=== PATIENT | male | born 1960 | race Caucasian/White ===

== ENCOUNTER 2021-12-13 11:00 | Outpatient (RCR) | payer BC, SELFPAY | END 2022-01-16 08:04 | disposition home or self-care (01) | LOC: PT.CARL 11:00 | PROVIDERS: Visit Provider Physician Assistant | DX: M25.512 Pain in left shoulder (principal) | CPT/HCPCS: 20560; 97010; 97014; 97033; 97035; 97110; 97163; G0283 ==

== ENCOUNTER 2023-01-07 19:35 | Emergency (ER) | payer BC, SELFPAY ==
[2023-01-07] VITALS (7 sets, daily range): BP systolic 176–213; BP diastolic 103–114; PULSE 61–69; RESP 16–18; TEMP 36.5–36.9; O2SAT 96–100; BMI 26.1; BMI 25.8
--- NOTE | 2023-01-07 20:03 | EXP.UTC ---
Discharge Plan Referrals Follow up/Referrals: Tomeka Melvin [Primary Care Provider] - See instructions Discharge ED Provider: Tone Galindo [facility] [place] General Stated complaint: dizzy, vomiting Mode of Arrival: Ambulatory Source of Information: Patient Limitations: No Limitations Time Seen by Provider: 01/07/23 20:03 Description of Symptoms (Recalled from Triage Doc. by RN): Patient complaint of dizziness, vomiting and blurred vision that started last night. HEENT Symptoms (Recalled from RN notes): No Resp Symptoms (Recalled from RN notes): No Skin Symptoms (Recalled from RN notes): No MS Symptoms (Recalled from RN notes): Yes Functional Status (Recalled from RN notes): wnl History of Present Illness Provider Complaint: Patient state that he was driving earlier and looked to the right and when he looked back he couldnt get his eyes to focus States that he had to nail puller and his had to take over driving State that his vision is blurry and feels like he is in another world State that he cannot focus and when he tries to look at something he gets sick He states that he has not had a headache, denies pain in ears and state that he has never felt like this before states that if he closes his eyes he feels a little better but when he opens them everything is blurry again Related Data Allergies Allergy/AdvReac Type Severity Reaction Status Date / Time No Known Allergies Allergy Verified 01/07/23 20:01 Worker's Comp Is this a Worker's Comp case?: No [facility] Disclaimer: The information contained in this section may have been updated after the patient was seen, as this information can be updated by other users. Social History Smoking Status: Unknown if ever smoked alcohol intake: never current occupational status: other Travel in the last 8 weeks: None ROS Obtained: Yes All systems reviewed & no additional complaints except as documented and Yes Systems reviewed as appropriate & no additional complaints except as documented Constitutional Constitutional: Reports system reviewed and no additional complaints, except as documented, Reports as per HPI and Denies headache(s) Eyes Eyes: Reports system reviewed and no additional complaints, except as documented, Reports as per HPI and Reports blurry vision ENT Ears, Nose, Mouth, and Throat: Reports system reviewed and no additional complaints, except as documented, Reports as per HPI, Reports dizziness, Denies otalgia, Denies headache(s), Denies nasal congestion, Denies nasal discharge, Denies sinus pain and Denies sinus pressure Cardiovascular Cardiovascular: Reports system reviewed and no additional complaints, except as documented and Reports as per HPI Respiratory Respiratory: Reports system reviewed and no additional complaints, except as documented and Reports as per HPI Gastrointestinal Gastrointestingal: Reports system reviewed and no additional complaints, except as documented, as per HPI, nausea and vomiting Neurologic Neurologic: Reports system reviewed and no additional complaints, except as documented, Reports as per HPI, Reports dizziness and Denies headache(s) Comments: Report feels dizzy, blurry vision when he tries to focus on something come on suddenly earlier Physical Exam General General appearance: alert and in no apparent distress Respiratory Respiratory exam: Present normal lung sounds bilaterally; Absent respiratory distress or wheezes Cardiovascular Cardiovascular exam: Present regular rate, normal rhythm and normal heart sounds Neurological Exam Neurological exam: Present alert and oriented X3 Medical Decision Making Tong Inquiry Pt receiving controlled substance: No Tong was queried for this patient: No Vital Signs: 01/07/23 19:36 Temperature 97.7 F Temperature Source Oral Pulse Rate [Radial] 61 Respiratory Rate 18 Blood Pressure [Right Arm] 213/103 H Blood Pressure Mean [Right Arm] 139 Blood Pressure Source [Right Arm] Automati
[2023-01-07 20:30] LABS: Coronavirus 19, PCR Not Detected (NotDetected); Influenza A, PCR Not Detected (NotDetected); Influenza B, PCR Not Detected (NotDetected)
--- NOTE | 2023-01-07 21:55 | CT_ITS ---
PROCEDURE INFORMATION: Exam: CTA Neck With Contrast Exam date and time: 01/07/2023 11:00 PM Age: 62 years old Clinical indication: Pain; Visual disturbance; Headache; Additional info: CASAREZ, HTN, blurry vision TECHNIQUE: Imaging protocol: Computed tomographic angiography of the neck with contrast. 3D rendering (Not supervised by radiologist): MIP and/or 3D reconstructed images were created by the technologist. Radiation optimization: All CT scans at this facility use at least one of these dose optimization techniques: automated exposure control; mA and/or kV adjustment per patient size (includes targeted exams where dose is matched to clinical indication); or iterative reconstruction. Contrast material: ISOVUE; Contrast volume: 100 ml; Contrast route: INTRAVENOUS (IV); REPORTING DATA: Count of CT and Cardiac NM exams in prior 12 months: This patient has received 0 known CTs and 0 known cardiac nuclear medicine studies in the 12 months prior to the current study. COMPARISON: CT HEAD/BRAIN WO CON 01/07/2023 10:58 PM FINDINGS: Right common carotid artery: No stenosis. No dissection or occlusion. Right internal carotid artery: No stenosis of the extracranial segment. No dissection or occlusion. Right external carotid artery: No occlusion or stenosis of the origin. Left common carotid artery: There is moderate soft plaque at the left carotid bulb and bifurcation. There is stenosis of the carotid bulb measuring less than 50%. Left internal carotid artery: No stenosis of the extracranial segment. No dissection or occlusion. Left external carotid artery: No occlusion or stenosis of the origin. Right vertebral artery: No stenosis. No dissection or occlusion. Left vertebral artery: No stenosis. No dissection or occlusion. Soft tissues: Normal. No significant soft tissue swelling. Bones/joints: No acute fracture. IMPRESSION: Moderate soft plaque at the left carotid bulb and bifurcation causing mild stenosis of the left carotid bulb. REFERENCES: NASCET CRITERIA. The degree of stenosis in the cervical segment of the internal carotid artery is based on NASCET criteria. Normal is no stenosis. Mild is less than 50% stenosis. Moderate is 50-69% stenosis. Severe is 70% to 99% stenosis. Total occlusion is no detectable patent lumen.
--- NOTE | 2023-01-07 21:55 | CT_ITS ---
PROCEDURE INFORMATION: Exam: CT Head Without Contrast Exam date and time: 01/07/2023 10:58 PM Age: 62 years old Clinical indication: Pain; Visual disturbance; Headache; Additional info: CASAREZ, HTN, blurry vision TECHNIQUE: Imaging protocol: Computed tomography of the head without contrast. Radiation optimization: All CT scans at this facility use at least one of these dose optimization techniques: automated exposure control; mA and/or kV adjustment per patient size (includes targeted exams where dose is matched to clinical indication); or iterative reconstruction. REPORTING DATA: Count of CT and Cardiac NM exams in prior 12 months: This patient has received 0 known CTs and 0 known cardiac nuclear medicine studies in the 12 months prior to the current study. COMPARISON: No relevant prior studies available. FINDINGS: Brain: There is mild to moderate small vessel disease. Chronic lacunar infarcts are seen in both frontal lobes and in the right basal ganglia. There is no evidence of acute parenchymal hemorrhage, extra-axial collection, or acute infarction. There is no mass effect, midline shift, or downward herniation. Cerebral ventricles: No ventriculomegaly. Paranasal sinuses: Visualized sinuses are unremarkable. No fluid levels. Mastoid air cells: Visualized mastoid air cells are well aerated. Bones/joints: Unremarkable. No acute fracture. Soft tissues: Unremarkable. IMPRESSION: 1. No evidence of acute intracranial process. 2. Mild to moderate small vessel disease. Multiple chronic lacunar infarcts.
--- NOTE | 2023-01-07 21:55 | CT_ITS ---
PROCEDURE INFORMATION: Exam: CTA Head With Contrast, Arteriography Exam date and time: 01/07/2023 11:00 PM Age: 62 years old Clinical indication: Pain; Visual disturbance; Headache; Additional info: CASAREZ, HTN, blurry vision TECHNIQUE: Imaging protocol: Computed tomographic angiography of the head with contrast. Exam focused on the arteries. 3D rendering (Not supervised by radiologist): MIP and/or 3D reconstructed images were created by the technologist. Radiation optimization: All CT scans at this facility use at least one of these dose optimization techniques: automated exposure control; mA and/or kV adjustment per patient size (includes targeted exams where dose is matched to clinical indication); or iterative reconstruction. Contrast material: ISOVUE; Contrast volume: 100 ml; Contrast route: INTRAVENOUS (IV); REPORTING DATA: Count of CT and Cardiac NM exams in prior 12 months: This patient has received 0 known CTs and 0 known cardiac nuclear medicine studies in the 12 months prior to the current study. COMPARISON: CT HEAD/BRAIN WO CON 01/07/2023 10:58 PM FINDINGS: ANTERIOR CIRCULATION: Right internal carotid artery: Intracranial segment is patent with no significant stenosis. No aneurysm. Right middle cerebral artery: No occlusion or significant stenosis. No aneurysm. Right anterior cerebral artery: No occlusion or significant stenosis. No aneurysm. Left internal carotid artery: Intracranial segment is patent with no significant stenosis. No aneurysm. Left middle cerebral artery: No occlusion or significant stenosis. No aneurysm. Left anterior cerebral artery: No occlusion or significant stenosis. No aneurysm. POSTERIOR CIRCULATION: Right vertebral artery: No occlusion or significant stenosis. No aneurysm. Left vertebral artery: No occlusion or significant stenosis. No aneurysm. Basilar artery: No occlusion or significant stenosis. No aneurysm. Right posterior cerebral artery: No occlusion or significant stenosis. No aneurysm. Left posterior cerebral artery: No occlusion or significant stenosis. No aneurysm. Brain: No definite mass, mass effect, or midline shift. Cerebral ventricles: No ventriculomegaly. Bones/joints: Unremarkable. No acute fracture. Soft tissues: Unremarkable. IMPRESSION: No large vessel stenosis or occlusion.
[2023-01-07 22:05] LABS: Basophils # 0.1 K/mm3 (0-0.2); Basophils % 0.4 % (0.1-2.0); Eosinophils # 0.1 K/mm3 (0.0-0.4); Eosinophils % 0.4 % (0.1-12.0); Hematocrit 46.1 % (42.0-52.0); Hemoglobin 15.2 g/dL (14.1-18.0); Lymphocytes # 1.2 K/mm3 (0.7-4.5); Lymphocytes % 7.3 % (10-50); Mean Corpuscular Hemoglobin 28.7 pg (27.0-31.2); Mean Corpuscular Volume 86.8 fl (80-94); Mean Platelet Volume 7.3 fl (7.4-10.4); Monocytes # 0.7 K/mm3 (0.1-1.0); Neutrophils # 14.5 K/mm3 (1.8-7.8); Neutrophils % 87.9 % (37.0-80.0); Platelet Count 299 K/mm3 (142-424); Red Blood Count 5.31 M/mm3 (4.60-6.20); Red Cell Distribution Width 13.1 % (11.5-17.5); White Blood Count 16.5 K/mm3 (4.8-10.8)
--- NOTE | 2023-01-07 22:09 | ECG_ITS ---
APPROVED REPORT Exam: Resting ECG HR:60 bpm ECG Measurements Heart Rate 60 AXES ND 150 P 24 QRSd 81 QRS 52 QT 424 T -33 QTc 424 Conclusion SINUS RHYTHM NONSPECIFIC ST & T-WAVE ABNORMALITY ABNORMAL ECG UNCONFIRMED REPORT Electronically signed by : Ty Vo MD 01/08/2023 18:33:03
[2023-01-07 22:12] LABS: MANUAL DIFFERENTIAL MANUAL DIFFERENTIAL (MANUAL DIFF)
[2023-01-07 22:27] LABS: Alanine Aminotransferase 22 U/L (12-78); Albumin Level 4.6 g/dl (3.5-5.0); Albumin/Globulin Ratio 1.2 (1.1-1.8); Alkaline Phosphatase 92 U/L (38-126); Anion Gap 5.7 mEq/L (5-15); Aspartate Amino Transferase 28 U/L (17-59); Bilirubin,Total 0.7 mg/dl (0.2-1.3); Blood Urea Nitrogen 11 mg/dl (9-20); Calcium 9.3 mg/dl (8.4-10.2); Carbon Dioxide 31 mmol/L (22.0-30.0); Chloride 97 mmol/L (98-107); Creatinine Clearance Estimated 90 mL/min (50-200); Estimated Glomerular Filt Rate 76 ml/min (>60); GFR (African American) 92 ML/MIN (>60); Globulin 3.7 g/dL (1.3-3.2); Glucose 226 mg/dl (74-100); Potassium 3.7 mmoL/L (3.5-5.1); Sodium 130 mmol/L (136-145); Total Protein,Serum 8.3 g/dl (6.3-8.2)
[2023-01-07 22:40] LABS: Troponin I < 0.01 ng/ml (0.00-0.034)
[2023-01-07 22:45] LABS: Free T4 (Free Thyroxine) 1.12 ng/dl (0.78-2.19)
[2023-01-07 22:58] LABS: Thyroid Stimulating Hormone 1.02 uIU/mL (0.465-4.68)
[2023-01-07 23:51] LABS: Lymphocytes % 7 % (10-50); Monocytes % 3 % (2-9); Neutrophils % 89 % (42-76); Total Cells Counted 100
[2023-01-07 23:52] LABS: Platelet Estimate Normal; RBC Morphology Normal
--- NOTE | 2023-01-07 23:55 | XR_ITS ---
PROCEDURE INFORMATION: Exam: XR Chest Exam date and time: 01/07/2023 11:57 PM Age: 62 years old Clinical indication: Shortness of breath; Additional info: KARENAlindsay TECHNIQUE: Imaging protocol: Radiologic exam of the chest. Views: 1 view. COMPARISON: CT ANGIO NECK 01/07/2023 11:00 PM FINDINGS: Lungs: Unremarkable. No consolidation. Pleural spaces: Unremarkable. No pleural effusion. No pneumothorax. Heart/Mediastinum: Unremarkable. No cardiomegaly. Bones/joints: Unremarkable. IMPRESSION: No acute findings.
[2023-01-08] VITALS: BP 174/104; PULSE 79; RESP 19; O2SAT 97
--- NOTE | 2023-01-08 00:11 | PC.NURSE ---
Pt up and ambulated to the bathroom. CR
[2023-01-08 01:00] VITALS: BP 188/107; PULSE 62; RESP 16; O2SAT 97
[2023-01-08 01:15] LABS: Troponin I < 0.01 ng/ml (0.00-0.034)
[2023-01-08 01:24] LABS: Microscopic, Urine URINE MICROSCOPIC (MICROSCOPIC)
[2023-01-08 01:30] VITALS: BP 179/106; PULSE 72; RESP 16; O2SAT 97
--- NOTE | 2023-01-08 01:35 | PC.NURSE ---
ED doctor on phone with hospitalist
[2023-01-08 01:36] LABS: Appearance,Urine Clear (Clear); Color,Urine Yellow (Yellow); PH,Urine 6.5 (5.0-8.5)
[2023-01-08 01:37] LABS: Bilirubin,Urine Negative (Negative); Blood, Urine Negative (Negative); Glucose,Urine (UA) 2+ (Negative); Ketones,Urine Negative (Negative); Nitrate,Urine Negative (Negative); Protein,Urine Negative (Negative)
[2023-01-08 01:38] LABS: Leukocyte Esterase,Urine Negative (Negative); Urobilinogen,Urine 0.2 EU/dl (0.2)
--- NOTE | 2023-01-08 01:42 | ECG_ITS ---
APPROVED REPORT Exam: Resting ECG HR:65 bpm ECG Measurements Heart Rate [address] 155 P 23 QRSd 81 QRS 32 QT 422 T -63 QTc [address] DEVIATION AND MODERATE T-WAVE ABNORMALITY, CONSIDER LATERAL ISCHEMIA [-0.1+ mV T-WAVE IN I/aVL/V5/V6] ABNORMAL ECG UNCONFIRMED REPORT Electronically signed by : Ty Vo MD 01/08/2023 18:32:50
[2023-01-08 01:43] LABS: Bacteria,Urine Trace /lpf; Squamous Epithelial Cell,Urine Occasional #/hpf (0-5)
--- NOTE | 2023-01-08 01:44 | HMH.EDGENADL ---
Discharge Plan Disposition Patient Disposition: Home, Self-Care Condition: Good Prescriptions Prescriptions: New lisinopril 10 mg tablet 10 mg PO DAILY Qty: 30 0RF meclizine 25 mg tablet 25 mg PO BID PRN (Reason: dizziness) Qty: 20 0RF Referrals Follow up/Referrals: Tomeka Melvin [Primary Care Provider] - See instructions Activity Restrictions/Add. Instructions Additional Instructions/Restrictions: You were evaluated in the emergency department today. At this time, your work-up was reassuring. You do have high blood pressure, so I recommend taking your blood pressure at least once a day and keeping a log of your blood pressures at home. Please follow-up with your primary care provider and provide them with this. We are sending in a prescription for meclizine for you to take as needed for vertigo. I am also sending in a prescription for lisinopril which is a blood pressure medication for you to take daily. Return to the emergency department for any new or worsening symptoms or any recurrence of severe dizziness. Please be seen by her primary care provider over the next 3 days. Clinical Impressions Clinical Impression: Hypertension, Vertigo Instructions Patient Instructions: DI for High Blood Pressure, DI for Vertigo Discharge ED Provider: Taylor Vega General Adult HPI <Taylor Vega DO - Last Filed: 01/08/23 02:03> General Chief complaint: Dizziness Stated complaint: dizzy, vomiting Time Seen by Provider: 01/07/23 20:03 Mode of Arrival: Wheelchair Source of Information: Patient and Spouse Limitations: No Limitations Description of Symptoms (Recalled from ER Triage Doc. by RN): pt reports he was driving around 5:30 today looked right and got dizzy and had to caul fat puller and threw up. the pt states that the last time he had something like this happen was when he had covid the 1st time Related Data Previous Rx's Medication Instructions Recorded lisinopril 10 mg tablet 10 mg PO DAILY #30 tabs 01/08/23 meclizine 25 mg tablet 25 mg PO BID PRN dizziness #20 tabs 01/08/23 Allergies Allergy/AdvReac Type Severity Reaction Status Date / Time No Known Allergies Allergy Verified 01/07/23 20:01 <Tone Galindo MD - Last Filed: 01/08/23 01:57> History of Present Illness HPI narrative: Patient presents for evaluation of acute onset vertigo, which occurred at approximately 5:00 PM today, symptoms have subsequently largely resolved, patient described the room is spinning. Patient first noticed symptoms while driving in the car, witnessed by at bedside. Of note patient does not routinely see a doctor so is unsure of any chronic medical issues. Was in his normal state of health prior to onset of events. As only remotely had similar symptoms of the past associated with prior diagnosis of coven. No chest pain or palpitations or motor weakness no precinct piercing to be. No diplopia or other focal neurologic complaints. [facility] <Taylor Vega DO - Last Filed: 01/08/23 02:03> [facility] Disclaimer: The information contained in this section may have been updated after the patient was seen, as this information can be updated by other users. Social History (Updated 01/07/23 @ 20:14 by Suzette Medrano APRN) Smoking Status: Never smoker alcohol intake: never current occupational status: other Travel in the last 8 weeks: None <Tone Galindo MD - Last Filed: 01/08/23 01:57> ROS Obtained: Yes All systems reviewed & no additional complaints except as documented Physical Exam <Taylor Vega DO - Last Filed: 01/08/23 02:03> General General appearance: alert and in no apparent distress <Tone Galindo MD - Last Filed: 01/08/23 01:57> Head Head exam: atraumatic and normocephalic Eye Eye exam: Present normal appearance, PERRL and EOMI ENT ENT exam: Present normal oropharynx Neck Neck exam: Present full ROM Respiratory Respiratory exam: Present normal lung sounds bilaterally; Absent respiratory dist
[2023-01-08 01:51] VITALS: BP 165/100; PULSE 68; RESP 18; TEMP 36.5
== END 2023-01-08 01:59 | disposition home or self-care (01) ==
LOC: UTC 19:37 → ER 20:11
PROVIDERS: Emergency Medicine; Emergency Provider Emergency Medicine; PCP Nurse Practitioner Family
DX: R42 Dizziness and giddiness (principal); R11.10 Vomiting, unspecified; I10 Essential (primary) hypertension
CPT/HCPCS: 36415; 70450; 70496; 70498; 71045; 80053; 81001; 84439; 84443; 84484; 85007; 85025; 87636; 93005; 96374; 99285; Q9967

== ENCOUNTER 2023-07-21 09:45 | Observation (INO) | payer BC, SELFPAY ==
[2023-07-21] VITALS (8 sets, daily range): BP systolic 107–151; BP diastolic 77–88; PULSE 62–78; RESP 14–18; TEMP 36.6–36.7; O2SAT 94–99; BMI 28.3; BMI 26.0
--- NOTE | 2023-07-21 09:53 | ECG_ITS ---
APPROVED REPORT Exam: Resting ECG HR:79 bpm ECG Measurements Heart Rate 79 AXES MO 149 P 30 QRSd 76 QRS 48 QT 349 T -10 QTc 383 Conclusion SINUS RHYTHM NONSPECIFIC T-WAVE ABNORMALITY Electronically signed by : HELENE DURANT, 07/22/2023 06:38:26
--- NOTE | 2023-07-21 09:58 | XR_ITS ---
FINAL REPORT CLINICAL HISTORY: slurred speech COMPARISON: 01/07/2023 FINDINGS: SINGLE-VIEW CHEST The heart size is normal. The mediastinum is normal. The lungs are clear. There is no pneumothorax. IMPRESSION: No acute cardiopulmonary process. Reviewed, Interpreted and Dictated by Michael Bliss III, MD Transcribed by Erna Torres Authenticated and [facility]
--- NOTE | 2023-07-21 09:59 | CT_ITS ---
FINAL REPORT TECHNIQUE: Thin section axial CT with IV contrast supplemented with multiplanar reconstruction under CT angiogram protocol. 3-D reconstructions were performed. This study was performed with techniques to keep radiation doses as low as reasonably achievable (ALARA). Individualized dose reduction techniques using automated exposure control or adjustment of mA and/or kV according to the patient''s size were employed. CLINICAL HISTORY: stroke symptoms, 1wk old, slurred speech COMPARISON: 01/07/2023 FINDINGS: No aneurysm is seen. Major intracranial vessels are patent without significant stenosis. Reviewed, Interpreted and Dictated by Michael Bliss III, MD Transcribed by Ruth Erazo Authenticated and [facility]
--- NOTE | 2023-07-21 09:59 | CT_ITS ---
FINAL REPORT TECHNIQUE: Thin section axial CT with IV contrast supplemented with multiplanar reconstruction under CT angiogram protocol. This study was performed with techniques to keep radiation doses as low as reasonably achievable (ALARA). Individualized dose reduction techniques using automated exposure control or adjustment of mA and/or kV according to the patient''s size were employed. NASCET criteria was utilized during interpretation. CLINICAL HISTORY: stroke symptoms, 1wk old, slurred speech COMPARISON: 01/07/2023 FINDINGS: Aortic arch: Arch shows no significant narrowing. Great vessel origins are widely patent. Right carotid: No significant stenosis is seen of the cervical common or internal carotid artery. Left carotid: No significant stenosis is seen of the cervical common or internal carotid artery. Vertebral: Left vertebral artery is dominant. No significant stenosis is present. IMPRESSION: No evidence of occlusion or significant stenosis. Reviewed, Interpreted and Dictated by Michael Bliss III, MD Transcribed by Ruth Erazo Authenticated and [facility]
--- NOTE | 2023-07-21 09:59 | CT_ITS ---
FINAL REPORT CLINICAL HISTORY: stroke symptoms, 1wk old, slurred speech COMPARISON: 01/07/2023 FINDINGS: Axial images of the head were obtained without contrast. Coronal reformatted images were also obtained. This study was performed with techniques to keep radiation doses as low as reasonably achievable (ALARA). Individualized dose reduction techniques using automated exposure control or adjustment of mA and/or kV according to the patient's size were employed. There is generalized age-appropriate atrophy. Periventricular low-attenuation areas are seen consistent with moderate chronic ischemic changes. There is no evidence of intracranial hemorrhage or mass. There are multiple chronic lacunar infarcts bilaterally which are stable. There is no evidence of acute infarct. There is no evidence of shift of the midline structures. No skull abnormality is seen on the bone window images. IMPRESSION: Atrophy and moderate periventricular chronic ischemic changes. No acute intracranial abnormality identified. Reviewed, Interpreted and Dictated by Michael Bliss III, MD Transcribed by Ruth Erazo Authenticated and . [facility]
[2023-07-21 10:10] LABS: Basophils # 0.2 K/mm3 (0-0.2); Basophils % 1.3 % (0.1-2.0); Eosinophils # 0.4 K/mm3 (0.0-0.4); Eosinophils % 3.3 % (0.1-12.0); Hematocrit 46.7 % (42.0-52.0); Hemoglobin 15.4 g/dL (14.1-18.0); Lymphocytes # 3.2 K/mm3 (0.7-4.5); Lymphocytes % 28.2 % (10-50); Mean Corpuscular Hemoglobin 30.9 pg (27.0-31.2); Mean Corpuscular Volume 93.7 fl (80-94); Mean Platelet Volume 7.3 fl (7.4-10.4); Monocytes # 0.8 K/mm3 (0.1-1.0); Monocytes % 7.3 % (1.7-9.3); Neutrophils # 6.8 K/mm3 (1.8-7.8); Neutrophils % 59.9 % (37.0-80.0); Platelet Count 324 K/mm3 (142-424); Red Blood Count 4.99 M/mm3 (4.60-6.20); Red Cell Distribution Width 13.3 % (11.5-17.5); White Blood Count 11.4 K/mm3 (4.8-10.8)
[2023-07-21 10:16] LABS: Alanine Aminotransferase 34 U/L (12-78); Albumin Level 4.3 g/dl (3.5-5.0); Albumin/Globulin Ratio 1.3 (1.1-1.8); Alkaline Phosphatase 86 U/L (38-126); Aspartate Amino Transferase 29 U/L (17-59); Bilirubin,Total 0.7 mg/dl (0.2-1.3); Blood Urea Nitrogen 16 mg/dl (9-20); Calcium 9.4 mg/dl (8.4-10.2); Carbon Dioxide 27 mmol/L (22.0-30.0); Chloride 101 mmol/L (98-107); Chol/HDL Ratio 6.5 (1-3.5); Cholesterol 246 mg/dl (140-200); Estimated Glomerular Filt Rate 68 ml/min (>60); GFR (African American) 82 ML/MIN (>60); Globulin 3.2 g/dL (1.3-3.2); Glucose 346 mg/dl (74-100); HDL Cholesterol 38 mg/dl (40-60); Sodium 138 mmol/L (136-145); Total Protein,Serum 7.5 g/dl (6.3-8.2); Triglycerides 293 mg/dl (30-150); VLDL Cholesterol 59 mg/dL (0-40)
--- NOTE | 2023-07-21 10:24 | ED_ITS ---
Discharge Plan Disposition Patient Disposition: Admitted Chief Complaint: Neuro Symptoms/Deficit Prescriptions Prescriptions: No Action lisinopril 10 mg tablet 10 mg PO DAILY Qty: 30 0RF meclizine 25 mg tablet 25 mg PO BID PRN (Reason: dizziness) Qty: 20 0RF Referrals Follow up/Referrals: Jose Morales APRN [Primary Care Provider] - See instructions Clinical Impressions Clinical Impression: Stroke syndrome, Right-sided sensory deficit present, Diabetes mellitus, Hyperlipidemia Discharge ED Provider: Corbin Medel General Adult HPI General Chief complaint: Neuro Symptoms/Deficit Stated complaint: slurred speech, dizziness Time Seen by Provider: 07/21/23 09:57 History of Present Illness HPI narrative: This is a 62-year-old male with history of hypertension on lisinopril with neurodeficits. Patient states that about 8 days prior to this visit, he woke up in the morning with these deficits. States that he has had slurred speech, difficulty with food falling out of the right side of his mouth, biting the right side of his tongue and cheek, weakness on his right side, falling toward his right side. Sustained no trauma. Has not had full fall, is not complaining of any pain. He states that the symptoms have not gotten any better or worse and his was able to convince him to come to the emergency department for further evaluation. Has been taking his medications as prescribed. Denies vision deficits, chest pain, shortness of breath, fevers or chills, or any other concerns Related Data Previous Rx's Medication Instructions Recorded lisinopril 10 mg tablet 10 mg PO DAILY #30 tabs 01/08/23 meclizine 25 mg tablet 25 mg PO BID PRN dizziness #20 tabs 01/08/23 Allergies Allergy/AdvReac Type Severity Reaction Status Date / Time No Known Allergies Allergy Verified 07/21/23 10:52 [facility] Disclaimer: The information contained in this section may have been updated after the patient was seen, as this information can be updated by other users. Social History (Updated 01/07/23 @ 20:14 by Suzette Medrano APRN) Smoking Status: Never smoker alcohol intake: never current occupational status: other Travel in the last 8 weeks: None ROS Obtained: Yes All systems reviewed & no additional complaints except as documented Physical Exam General General appearance: alert and in no apparent distress Head Head exam: atraumatic and normocephalic Eye Eye exam: Present normal appearance, PERRL and EOMI ENT ENT exam: Present mucous membranes moist Neck Neck exam: Present normal inspection, full ROM and trachea midline Respiratory Respiratory exam: Present normal lung sounds bilaterally; Absent respiratory distress, wheezes, stridor, accessory muscle use or prolonged expiratory phase Cardiovascular Cardiovascular exam: Present regular rate and normal rhythm Abdominal Exam Abdominal exam: Present soft; Absent distention, tenderness, guarding, rebound or rigidity Extremities Exam Extremities exam: Absent edema Neurological Exam Neurological exam: Present alert, oriented X3, normal gait, motor sensory deficit and other (NIH 8. Patient has 1 point for lateral gaze palsy, right- sided lower face paralysis, right upper extremity weakness without drift, right lower extremity weakness and drift, decreased sensation right upper extremity as compared to left, moderate dysarthria, and visual inattention.); Absent CN II- XII intact Skin Skin exam: Present warm and dry; Absent diaphoresis or erythema Medical Decision Making Medical Records Medical records reviewed: Yes I reviewed the patient's medical records. Tong Inquiry Pt receiving controlled substance: No Tong was queried for this patient: No Vital Signs: 07/21/23 10:02 07/21/23 10:11 07/21/23 10:45 Temperature Source Oral Pulse Rate 78 71 Pulse Rate [Left] 76 Respiratory Rate 14 15 Blood Pressure 144/88 H 127/82 Blood Pressure [Right Arm] 144/88 H Blood Pressure Mean 103 Blood Pressure Mean [Right Arm] 106 Blood Pressure Source [Right Arm] Automatic Cuff Blood Pressure Position [Right Arm] Sitting 02 Sat by Pulse Oximetry 98 98 97 Oxygen Delivery Method Room Air Lab Data Lab Results 07/21/23 09:57: WBC 11.4 H, RBC 4.99, Hgb 15.4, Hct 46.7, MCV 93.7, MCH 30.9, MCHC 33.0, RDW 13.3, Plt Count 324, MPV 7.3 L, Neut % (Auto) 59.9, Lymph % (Auto) 28.2, Kane % (Auto) 7.3, Eos % (Auto) 3.3, Baso % (Auto) 1.3, Neut # (Auto) 6.8, Lymph # (Auto) 3.2, Kane # (Auto) 0.8, Eos # (Auto) 0.4, Baso # (Auto) 0.2, Sodium 138, Potassium 4.0, Chloride 101, Carbon Dioxide 27, Anion Gap 14.0, BUN 16, Creatinine 1.10, Estimated GFR 68, Est GFR ( Amer) 82, Glucose 346 H, Hemoglobin A1c 9.8 H, Calcium 9.4, Total Bilirubin 0.7, AST 29, ALT 34, Alkaline Phosphatase 86, Troponin I < 0.01, Total Protein 7.5, Albumin 4.3, Globulin 3.2, Albumin/Globulin Ratio 1.3, Triglycerides 293 H, Cholesterol 246 H, LDL Cholesterol Direct 119.19, VLDL Cholesterol 59 H, HDL Cholesterol 38 L, Cholesterol/HDL Ratio 6.5 H 07/21/23 09:57 07/21/23 09:57 Orders (Tests/Meds): ED MEDICATIONS Discontinued Medications Generic Name Dose Route Start Last Admin Trade Name Freq PRN Reason Stop Dose Admin Aspirin 324 mg 07/21/23 10:31 07/21/23 11:10 Aspirin 81mg Chewable Tablet PO 07/21/23 10:32 324 mg ONCE ONE Administration Iopamidol 100 ml 07/21/23 10:43 07/21/23 10:43 Iopamidol-370 (76%);100ml Bottle IV 07/21/23 10:44 100 ml ONCE ONE Administration Sodium Chloride 10 ml 07/21/23 10:43 07/21/23 10:43 Sodium Chloride 0.9% 10ml Syr (Rad Only) IV 07/21/23 10:44 10 ml ONCE ONE Administration Sodium Chloride 50 ml 07/21/23 10:43 07/21/23 10:43 0.9 % Sodium Chloride 50 Ml Vial IV 07/21/23 10:44 50 ml ONCE ONE Administration ORDERS Category Date Time Status CT angio head Stat Cat Scan 07/21/23 09:[address] angio neck Stat Cat Scan 07/21/23 09:[address] head/brain wo con Stat Cat Scan 07/21/23 09:59 Completed CXR --portable [XR chest portable] Stat Exams 07/21/23 09:58 Taken Complete Blood Count Auto Diff Stat Lab 07/21/23 09:57 Completed Comprehensive Metabolic Panel Stat Lab 07/21/23 09:57 Completed Hemoglobin A1C Stat Lab 07/21/23 09:57 Completed Lipid Panel Stat Lab 07/21/23 09:57 Completed Troponin I Q3H Lab 07/21/23 13:00 Ordered Troponin I Q3H Lab 07/21/23 16:00 Ordered Troponin I Stat Lab 07/21/23 09:57 Completed Urinalysis and Microscopic Stat Lab 07/21/23 10:12 Received HEART Score History (anamnesis): Slightly suspicious ECG: Normal Age: 45-65 years Risk factors: 3 or more risk factors Troponin: </= normal limit HEART Score: 3 Medical Decision Narrative: This is a 62-year-old male with history of hypertension on lisinopril with neurodeficits. Patient states that about 8 days prior to this visit, he woke up in the morning with these deficits. States that he has had slurred speech, difficulty with food falling out of the right side of his mouth, biting the right side of his tongue and cheek, weakness on his right side, falling toward his right side. Sustained no trauma. Has not had full fall, is not complaining of any pain. He states that the symptoms have not gotten any better or worse and his was able to convince him to come to the emergency department for further evaluation. Has been taking his medications as prescribed. Denies vision deficits, chest pain, shortness of breath, fevers or chills, or any other concerns. History was obtained via conversation with patient and . On arrival, patient hemodynamically stable, alert, oriented x4, appropriate, GCS 15, moving all extremities spontaneously, pupils equal and reactive to light. Full physical exam performed and significant for NIH of 8 for right-sided deficits as described above. Cardiopulmonary exam within normal limits, pulses equal and symmetric, patient no acute distress. Differential includes embolic versus thrombotic stroke, intracranial hemorrhage, dissection, stroke mimic, metabolic abnormality, among others. Patient was given 324 mg aspirin for symptomatic management and correction of underlying abnormalities. Workup independently interpreted and significant for nonactionable CBC or chemistry. Patient's initial glucose 346, this correlates with an A1c of 9.8. Patient also has hyperlipidemia and hypercholesterolemia with triglycerides 293, cholesterol 246. Troponin negative. CT head without obvious acute infarct, CTA head and neck without large vessel occlusion or other obvious vascular abnormality. See radiology read for full review of final results. Independent interpretation of EKG shows sinus rhythm [address] or T wave changes concerning for acute ischemia. [place], QRS, QT intervals within normal limits. Elizabeth normal. Heart score 3. On reevaluation, patient resting at baseline in bed. Hospital medicine was contacted for admission for further workup, including MRI to rule out intracranial mass versus other ischemic insult. Case was discussed at length, admission warranted at this time. Given patient presentation, workup, history, this most likely represents subacute stroke syndrome versus intracranial mass. Because patient high risk for clinical decompensation, deemed appropriate for inpatient admission. Results were relayed to patient who voiced understanding and patient was agreeable to inpatient admission and management. Patient was admitted to the hospital for further definitive management. Critical Care Critical Care Time Critical Care Time: No
[2023-07-21 10:27] LABS: Direct LDL Cholesterol 119.19 mg/dL (100-129)
[2023-07-21 10:31] LABS: Troponin I < 0.01 ng/ml (0.00-0.034)
--- NOTE | 2023-07-21 10:35 | PC.NURSE ---
Patient to ct.
--- NOTE | 2023-07-21 10:40 | PC.NURSE ---
Patient returned from ct.
[2023-07-21] MEDS: SODIUM CHLORIDE 0.9% 10ML SYR (RAD ONLY) 10 ML IV (10:43)
[2023-07-21] MEDS: 0.9 % SODIUM CHLORIDE 50 ML VIAL IV (10:43)
[2023-07-21] MEDS: IOPAMIDOL-370 (76%);100ML BOTTLE 100 ML IV (10:43)
[2023-07-21 10:52] LABS: Microscopic, Urine URINE MICROSCOPIC (MICROSCOPIC)
[2023-07-21 10:54] LABS: Appearance,Urine CLEAR (Clear); Bilirubin,Urine Negative (Negative); Blood, Urine Negative (Negative); Color,Urine YELLOW (Yellow); Glucose,Urine (UA) 3+ (Negative); Ketones,Urine Negative (Negative); Leukocyte Esterase,Urine Negative (Negative); Nitrate,Urine Negative (Negative); PH,Urine 5.5 (5.0-8.5); Protein,Urine Negative (Negative); Urobilinogen,Urine 0.2 EU/dl (0.2)
[2023-07-21 10:55] LABS: Hemoglobin A1C 9.8 % (4.0-6.0)
[2023-07-21] MEDS: ASPIRIN 81MG CHEWABLE TABLET 324 MG PO (11:10)
--- NOTE | 2023-07-21 11:19 | PC.NURSE ---
rounded on pt no needs at this time, did close doors so pt could rest. at bs and call light in reach
--- NOTE | 2023-07-21 11:31 | PC.NURSE ---
house aware of admission
[2023-07-21 11:36] LABS: Bacteria,Urine Trace /lpf; Squamous Epithelial Cell,Urine Occasional #/hpf (0-5)
--- NOTE | 2023-07-21 11:38 | PC.NURSE ---
Admissions notified of admit to room 261 for Stoke symptoms to . Acute.
--- NOTE | 2023-07-21 11:55 | PC.NURSE ---
report called to Mónica Sutherland RN
--- NOTE | 2023-07-21 12:01 | PC.NURSE ---
Pt arrived to SCU room 262 at this time via WC
--- NOTE | 2023-07-21 12:43 | HMH.PHAINT1 ---
Pharmacy Intervention Comments: Verified home medications using external fill history and provider notes
[2023-07-21 13:44] LABS: Troponin I < 0.01 ng/ml (0.00-0.034)
--- NOTE | 2023-07-21 15:26 | MR_ITS ---
PROCEDURE INFORMATION: Exam: MR Head Without Contrast Exam date and time: 07/21/2023 3:35 PM Age: 62 years old Clinical indication: Stroke-like symptoms; Speech disturbance; Additional info: CVA TECHNIQUE: Imaging protocol: Magnetic resonance imaging of the head without contrast. COMPARISON: CT ANGIO HEAD 07/21/2023 10:34 AM FINDINGS: Brain: There are multiple T2/FLAIR subcortical and deep white matter hyperintense foci, which can be seen with reactive gliosis secondary to prior infectious, ischemic, or traumatic insults. Bilateral periventricular white-matter diffusion restriction having increased DWI signal with low ADC values measuring 9 mm on the right, and 11 mm on the left. Cerebral ventricles: Normal. No ventriculomegaly. Bones/joints: Unremarkable. Paranasal sinuses: Normal as visualized. No acute sinusitis. Mastoid air cells: Normal as visualized. No mastoid effusion. Orbital cavities: Unremarkable. Soft tissues: Unremarkable. IMPRESSION: Bilateral periventricular white matter ischemia as discussed above.
--- NOTE | 2023-07-21 16:13 | EXP.HP ---
History of Present Illness *Admission Date: 07/21/23 *Reason for visit:: Right-sided weakness, right facial droop *History of present illness: Patient is a 62-year-old male without significant past medical history who presents to the hospital due to right-sided facial droop, right-sided weakness. According the patient he has been having weakness for the past 1 week, it has not been improving. He decided to come to the hospital for evaluation. Patient also mentions he feels dizzy intermittently especially while standing up. Patient denied chest pain shortness of breath nausea vomiting diarrhea constipation dysuria fevers and chills. Patient denies difficulty swallowing difficulty walking. [facility] Disclaimer: The information contained in this section may have been updated after the patient was seen, as this information can be updated by other users. Social History (Updated 01/07/23 @ 20:14 by Suzette Medrano APRN) Smoking Status: Never smoker alcohol intake: never current occupational status: other Travel in the last 8 weeks: None Review of Systems Review of Systems Review of systems (narrative): as per [facility] Meds Home Medications and Allergies Home Medications Medication Instructions Recorded Confirmed Type lisinopril 10 mg tablet 10 mg PO DAILY #30 tabs 01/08/23 07/21/23 Rx meclizine 25 mg tablet 25 mg PO BID PRN dizziness #20 tabs 01/08/23 07/21/23 Rx New Prescriptions to Start Prescriptions: Allergies Allergy/AdvReac Type Severity Reaction Status Date / Time No Known Allergies Allergy Verified 07/21/23 12:23 Exam Data for Last 24 hours Vital signs and Labs for Last 24 Hours: Temp Pulse Resp BP Pulse Ox O2 Del Method 98.0 F 78 18 151/82 H 98 Room Air 07/21/23 15:21 07/21/23 15:21 07/21/23 15:21 07/21/23 15:21 07/21/23 15:21 07/21/23 15:21 Laboratory Results - last 24 hr 07/21/23 09:57: WBC 11.4 H, RBC 4.99, Hgb 15.4, Hct 46.7, MCV 93.7, MCH 30.9, MCHC 33.0, RDW 13.3, Plt Count 324, MPV 7.3 L, Neut % (Auto) 59.9, Lymph % (Auto) 28.2, Bryan % (Auto) 7.3, Eos % (Auto) 3.3, Baso % (Auto) 1.3, Neut # (Auto) 6.8, Lymph # (Auto) 3.2, Bryan # (Auto) 0.8, Eos # (Auto) 0.4, Baso # (Auto) 0.2, Sodium 138, Potassium 4.0, Chloride 101, Carbon Dioxide 27, Anion Gap 14.0, BUN 16, Creatinine 1.10, Estimated GFR 68, Est GFR ( Amer) 82, Glucose 346 H, Hemoglobin A1c 9.8 H, Calcium 9.4, Total Bilirubin 0.7, AST 29, ALT 34, Alkaline Phosphatase 86, Troponin I < 0.01, Total Protein 7.5, Albumin 4.3, Globulin 3.2, Albumin/Globulin Ratio 1.3, Triglycerides 293 H, Cholesterol 246 H, LDL Cholesterol Direct 119.19, VLDL Cholesterol 59 H, HDL Cholesterol 38 L, Cholesterol/HDL Ratio 6.5 H 07/21/23 10:12: Urine Color Yellow, Urine Appearance Clear, Urine pH 5.5, Ur Specific [place] 1.020, Urine Protein Negative, Urine Glucose (UA) 3+, Urine Ketones Negative, Urine Blood Negative, Urine Nitrate Negative, Urine Bilirubin Negative, Urine Urobilinogen 0.2, Ur Leukocyte Esterase Negative, Urine RBC None, Urine WBC None, Ur Squamous Epith Cells Occasional, Urine Bacteria Trace 07/21/23 13:10: Troponin I < 0.01 I & O for Last 24 hours: Intake & Output 07/18/23 07/19/23 07/20/23 07/21/23 22:59 23:59 23:59 23:59 Output Total 0 / 0 Balance 0 / 0 Weight 87.09 kg Constitutional Constitutional: no acute distress *Routine HEENT Exam Head: Present normocephalic Eye: Present EOMI and PERRL ENT: Present mucous membranes moist *Routine Neck Exam Neck: Present supple; Absent lymphadenopathy *Routine Respiratory Exam Respiratory: Present CTA bilaterally *Routine Cardiovascular Exam Cardiovascular: Present RRR *Routine Abdominal Exam Abdominal: Present soft and normoactive bowel sounds; Absent tenderness *Routine Rectal Exam Rectal:: deferred *Routine Genitalia Exam Genitalia:: deferred *Routine Extremities Exam Extremities: Absent cyanosis, clubbing or edema *Routine Skin Exam Skin: Present warm; Absent rash *Routine Neurological Exam Neurological: Present alert, oriented X3, moving all extremities and normal tone Assessment and Plan *Assessment and plan (1) Hyperlipidemia: Status: Acute Category: Medical Code(s): E78.5 - Hyperlipidemia, unspecified (2) Diabetes mellitus: Status: Acute Category: Medical Code(s): E11.9 - Type 2 diabetes mellitus without complications (3) Stroke syndrome: Status: Acute Category: Medical (4) Hypertension: Status: Acute Category: Medical Code(s): I10 - Essential (primary) hypertension Plan Patient is a 62-year-old male without significant past medical history who presents to the hospital due to right-sided facial droop, right-sided weakness. According the patient he has been having weakness for the past 1 week, it has not been improving. He decided to come to the hospital for evaluation. Patient also mentions he feels dizzy intermittently especially while standing up. Patient denied chest pain shortness of breath nausea vomiting diarrhea constipation dysuria fevers and chills. Patient denies difficulty swallowing difficulty walking. Assessment and plan Right-sided facial droop, right-sided weakness, rule out CVA Start aspirin, statin Carotid ultrasound Cardiac echocardiogram MRI brain without contrast CT head performed in ED-negative for acute neurologic process New onset diabetes mellitus Started on insulin sliding scale Restart metformin Long-acting insulin A1c checked, 9.8 Monitor and replace electrolytes Hypertension Hyperlipidemia Resume home lisinopril Continuous statin at discharge DVT prophylaxis- heparin
[2023-07-21] MEDS: HEPARIN SODIUM 5,000 UNIT/ML VIAL 5000 UNIT SQ ×2 (16:48→22:21)
[2023-07-21] MEDS: DOCUSATE SODIUM 100 MG CAPSULE PO (16:48)
[2023-07-21 17:08] LABS: Troponin I < 0.01 ng/ml (0.00-0.034)
[2023-07-21 17:12] LABS: POC Glucose,Bedside 136 (70-110)
[2023-07-21] MEDS: humaLOG 100 UNITS/ML 3ML VIAL (SSI) SQ (20:27)
[2023-07-21] MEDS: INSULIN GLARGINE 100 UNITS/ML 3ML FLEXPEN 10 UNIT SQ (20:28)
[2023-07-21] MEDS: ATORVASTATIN 40MG TABLET 40 MG PO (20:29)
[2023-07-22] VITALS: BP 117/75; PULSE 65; RESP 17; TEMP 36.7; O2SAT 95
[2023-07-22 04:00] VITALS: BP 114/77; PULSE 60; RESP 17; TEMP 36.6; O2SAT 95; BMI 25.9
[2023-07-22 04:10] VITALS: PULSE 66
[2023-07-22] MEDS: humaLOG 100 UNITS/ML 3ML VIAL (SSI) SQ ×2 (05:45→11:35)
[2023-07-22] MEDS: HEPARIN SODIUM 5,000 UNIT/ML VIAL 5000 UNIT SQ (05:59)
--- NOTE | 2023-07-22 06:00 | CA_ITS ---
APPROVED REPORT EXAM: Comprehensive 2D, Doppler, and color-flow Echocardiogram [employer] Operator: Anel Dutta CRT Ht: 6 ft 0 in Wt: 192lbs BSA: 2.09 BP: 127/82 mmHg Indications: CVA/TIA, Diabetes, Hyperlipidemia, Hypertension/HDD, B/S ordered Echo Enhancing Agent Indication: Rule out Shunt Agent(s) / Amount(s) Used: Agitated Saline 10 cc Comments: B/S study ordered M-Mode Dimensions RVDd 3.06 cm (0.9-2.6) LA Diam 3.04 cm (1.9-4.0) LVDd 4.15 cm (3.5-5.7) LVDs 3.09 cm (3.5-5.7) IVSd 2.09 cm (0.6-1.1) PWd 0.50 cm (0.6-1.1) EF (Teich) 50.80% FS 25.50% EDV (Teich) 76.40 mL TAPSE 2.00 (<1.7) ESV (Teich) 37.60 mL LV Diastology E Decel Time 230 (160-240 msec) E/A Ratio 0.60 MED A' 7.00 cm/s LAT A' 7.00 cm/s Aortic Valve AO Peak GR. 3.90 mmHg Mitral Valve MV A Velocity 99.0 (40-130 cm/s) E/A Ratio 0.60 Pulmonary Valve PV Peak Velocity 124.0 (50-150 cm/s) Tricuspid Valve TR P. Velocity 232.00 cm/s RAP Estimate 10.00 mmHg RVSP 31.50 mmHg Left Ventricle The left ventricle is normal size. The left ventricular systolic function is normal. The left ventricular ejection fraction is within the normal range. Proximal septal thickening is noted. There is normal LV segmental wall motion. The left ventricular diastolic function is normal. LVEF is 60%. Right Ventricle The right ventricle is normal size. The right ventricular systolic function is normal. Atria The left atrium size is normal. The right atrium size is normal. There is no Doppler evidence of interatrial shunt. Saline bubble contrast intravenous injection does not demonstrate PFO. Aortic Valve The aortic valve opens well. There is no aortic valvular stenosis. No aortic regurgitation is present. Mitral Valve The mitral valve is normal in structure. No evidence of mitral valve stenosis. There is no mitral valve regurgitation noted. Tricuspid Valve The tricuspid valve leaflets are thin and pliable. Trace tricuspid regurgitation. RVSP is 20-25 mmHg. Pulmonic Valve The pulmonary valve is normal in structure. Trace pulmonic regurgitation. Great Vessels The aortic root is normal in size. The ascending aorta is normal in size. IVC is normal in size and collapses >50% with inspiration. Pericardium There is no pericardial effusion. Other Information Study Quality: Adequate Conclusion Normal biventricular systolic function. No significant valvular stenosis or regurgitation. There is no color Doppler of interatrial shunt. Agitated saline administration at rest and with Valsalva does not demonstrate evidence of interatrial shunt. Electronically signed by : Graciela Calderon MD 07/24/2023 17:14:21
[2023-07-22 06:45] LABS: Basophils # 0.1 K/mm3 (0-0.2); Basophils % 1.1 % (0.1-2.0); Eosinophils # 0.5 K/mm3 (0.0-0.4); Eosinophils % 4.6 % (0.1-12.0); Hematocrit 43.6 % (42.0-52.0); Hemoglobin 14.7 g/dL (14.1-18.0); Lymphocytes # 3.1 K/mm3 (0.7-4.5); Lymphocytes % 27.8 % (10-50); Mean Corpuscular HGB Conc 33.7 g/dL (31.8-35.4); Mean Corpuscular Hemoglobin 30.6 pg (27.0-31.2); Mean Corpuscular Volume 90.9 fl (80-94); Mean Platelet Volume 7.4 fl (7.4-10.4); Monocytes # 0.8 K/mm3 (0.1-1.0); Monocytes % 7.5 % (1.7-9.3); Neutrophils # 6.6 K/mm3 (1.8-7.8); Platelet Count 307 K/mm3 (142-424); Red Cell Distribution Width 13.2 % (11.5-17.5); White Blood Count 11.2 K/mm3 (4.8-10.8)
[2023-07-22 07:25] LABS: Anion Gap 10.4 mEq/L (5-15); Blood Urea Nitrogen 16 mg/dl (9-20); Carbon Dioxide 24 mmol/L (22.0-30.0); Chloride 104 mmol/L (98-107); Creatinine Clearance Estimated 96 mL/min (50-200); Estimated Glomerular Filt Rate 86 ml/min (>60); GFR (African American) 104 ML/MIN (>60); Glucose 152 mg/dl (74-100); Potassium 4.4 mmoL/L (3.5-5.1); Sodium 134 mmol/L (136-145)
[2023-07-22 08:00] VITALS: BP 128/79; PULSE 83; RESP 17; TEMP 36.4; O2SAT 95
[2023-07-22] MEDS: DOCUSATE SODIUM 100 MG CAPSULE PO (08:17)
[2023-07-22] MEDS: ASPIRIN EC 81MG TABLET 81 MG PO (08:17)
--- NOTE | 2023-07-22 10:57 | HMH.OTEV ---
OT Inpatient Evaluation Rehab OT IP Evaluation Start: 07/21/23 16:13 Freq: ONCE Status: Active Protocol: Document 07/22/23 10:53 CYN (Rec: 07/22/23 10:57 CYN [id number]) Rehab OT IP Assessment Subjective History Patient is a 62-year-old male without significant past medical history who presents to the hospital due to right- sided facial droop, right- sided weakness. According the patient he has been having weakness for the past 1 week, it has not been improving. He decided to come to the hospital for evaluation. Patient also mentions he feels dizzy intermittently especially while standing up. Patient denied chest pain shortness of breath nausea vomiting diarrhea constipation dysuria fevers and chills. Patient denies difficulty swallowing difficulty walking. Patient lives in with . 1 story home with no N[place]EL. Independent with ADLs and fx'l mobility prior ot hospitalization. Subjective I can get up. Analysis Patient's fx'l mobility and ADLs during initial evaluation. Patient completed all tasks independently. Patient verbalize, Its my words I'm having trouble with. Objective Patient Orientation Person,Place,Name,Age,Birthday ,Year Right Upper Extremity Gross ROM WFL Left Upper Extremity Gross ROM WFL Bed Mobility bed mobility - supine/sit Assist Level Independent Transfer Training Sit/Stand/Pivot Transfer Assist Level Independent Chair Transfer Ability Independent Chair Transfer Technique Sit to/from Ambulatory Chair Transfer Assistive Devices Rolling Walker Lower Body Dressing Ability Independent Rehab OT IP prob,goals,plan Problems Date of Evaluation: 07/22/23 Rehab Potential Rehab Potential Innapropriate for Skilled Therapy Discharge Plan OT Discharge Plan Patient appears to be independent with ADLs and fx'l mobility. Patient has more concerns with speech at this time. Eval Complexity Eval Charge Codes 71943 - Low Complexity PHYSICIAN CERTIFICATION: I certify the specified therapy services for Jordan Desai are required, authorized, and reviewed every 30 days.
[2023-07-22 11:44] LABS: POC Glucose,Bedside 182 (70-110)
--- NOTE | 2023-07-22 12:09 | HMH.PTEV ---
Physical Therapy Evaluation Rehab PT IP Evaluation Start: 07/21/23 16:13 Freq: ONCE Status: Active Protocol: Document 07/22/23 12:05 MANJEET (Rec: 07/22/23 12:09 MANJEET [email or web address]) Subjective/History History History Per H&P: Patient is a 62-year-old male without significant past medical history who presents to the hospital due to right- sided facial droop, right- sided weakness. According the patient he has been having weakness for the past 1 week, it has not been improving. He decided to come to the hospital for evaluation. Patient also mentions he feels dizzy intermittently especially while standing up. Patient denied chest pain shortness of breath nausea vomiting diarrhea constipation dysuria fevers and chills. Patient denies difficulty swallowing difficulty walking. Subjective Subjective PLOF per pt report: Lives in 1 story home with with no N[place]. IND with ADLs and functional mobility. Driving prior to admission. No AD use. New diagnosis of cancer in past 12 No months? Rehab PT IP Eval Objective Appearance Patient Behavior Appropriate,Cooperative Patient Orientation Person,Place,Situation Difficulty following instructions none Speech Pattern Clear Ambulation Patient Able to Ambulate Yes Ambulation Observation IP General Gait Pattern Observation No Deviations/Normal Ambulation Distance (feet) 15 Ambulation Assistive Device None Ambulation Ability Supervision/Stand by Balance Ability to Arise Able, w/o using arms Sitting Balance Steady, safe Standing Balance Steady, wide stance Transfers Bed Transfer Ability Supervision/Stand by Sit to Stand Bed Transfer Ability Supervision/Stand by Rehab PT IP prob,goals,plan Problems Date of Evaluation: 07/22/23 Rehab Potential Rehab Potential Innapropriate for Skilled Therapy Discharge Plan PT Discharge Plan Pt safe to d/c home when deemed medically necessary d/t current level of mobility, home set-up, and family support. Pt not appropriate for skilled acute care PT at this time d/t pt?s mobility being at baseline. Eval Complexity Eval Charge Codes 39743 - Moderate Complexity PHYSICIAN CERTIFICATION: I certify the specified therapy services for Jordan Desai are required, authorized, and reviewed every 30 days.
--- NOTE | 2023-07-22 13:52 | HMH.SLAPHASI ---
Speech & Language Evaluation Speech/Language Aphasia Evaluation Start: 07/22/23 13:27 Freq: once Status: Complete Protocol: Document 07/22/23 13:27 CONSTANCE (Rec: 07/22/23 13:52 CONSTANCE [id number]) Aphasia Assessment/Goals/Plan Assessment Date of Evaluation: 07/22/23 Evaluation Type Initial Certification Assessment/Problems CVA/TIA per MD order Does Patient Qualify for Service Yes Qualify/Failure Comment Based on clinical observations made throughout the bedside assessment, Mr. Desai would benefit from skilled speech therapy services to address facial droop/weakness and oral motor awareness associated with dysarthria and slurred speech in order to improve speech intelligibility and oral motor strength and awareness across multiple settings and environments. Plan Pt will be seen # times/week 3 for # weeks 4 Anticipate reaching STG in # weeks 2 Anticipate reaching LTG in # weeks 4 Pt/Guardian verbally ack understanding Yes of dx/prognosis/goals G -code Required No STG-Intell/Buccal/Labial Strength Intelligibility 90 #Intelligibility Drills Performed/Sesson 10 Labial Strength 90 # Times Exercises Perf/Session 10 Buccal Strength 90 # Times Exercises Perf/Session 10 Supervisor Personnel Clerks Goals Increase oral motor tone to improve Yes: 90 intelligibility. Increase intelligibility w/use of Yes: 90 traditional articulation treatment. Education Instructions provided Discussed results of clinical bedside evaluation assessing cognitive-linguistic skills and swallowing and POC with pt and his family, as well as nursing. All of which expressed understanding. Pt/Caregiver Able to Recall Information Able to recall/restate Reinforcement needed No Speech & Language HPI History Present Illness Description of Patient Problem Patient is a 62-year-old male with history of hypertension on lisinopril with neurodeficits who presented in ED. Patient states that about 8 days prior to this visit, he woke up in the morning with these deficits. States that he has had slurred speech, difficulty with food falling out of the right side of his mouth, biting the right side of his tongue and cheek, weakness on his right side, falling toward his right side. Sustained no trauma. Has not had full fall, is not complaining of any pain. ho presents to the hospital due to right-sided facial droop, right-sided weakness. According the patient he has been having weakness for the past 1 week, it has not been improving. He decided to come to the hospital for evaluation. Patient also mentions he feels dizzy intermittently especially while standing up. Patient denied chest pain shortness of breath nausea vomiting diarrhea constipation dysuria fevers and chills. Patient denies difficulty swallowing difficulty walking. CXR impressions state No acute cardiopulmonary process. Head CT impressions state Atrophy and moderate periventricular chronic ischemic changes. No acute intracranial abnormality identified. Head CTA impressions state No aneurysm is seen. Major intracranial vessels are patent without significant stenosis. Brain MRI impression states Bilateral periventricular white matter ischemia. Rehab Services Assessed Speech therapy Is this evaluation r/t stroke? Yes Aphasia Evaluations Communication Speech Intelligibility Pt was overall intelligible with mild to moderate dysarthria 2' right sided facial droop, tongue deviation , and generalized right sided weakness. Auditory Comprehension Yes: Word Level Sentences Following Directions Paragraph Conversation Reading Comprehension Yes: Letter Naming Word Naming Sentences Verbal Expressive Language Yes: Automatic Speech Completing Sentences Repetition Abilities Word Level Naming Naming Actions/Objects Attending/Orientation/Memory Yes: Delayed Recall W/ Interference Orientation Attention/Concentration Memory Congnitive/Linguistic Skills Yes: Thought Organization Categorization Similarities/Differences Convergent Thinking Yes: Inferences Divergent Thinking Yes: Idioms Verbal Absurdities Deductive Reasoning Yes: Word Deductions Inductive Reasoning Yes: Analogies Additional Evaluation(s) Additional Tests BOX TURNER also completed a CSE. Mr. Desai was administered all bolus including thin liquids, nectar thick liquids, puree with applesauce, pudding, mechanical soft with a nutrigrain bar, and regular solids with a eduardo cracker. Pt and family reported no difficulty with meals and no difficulty with medication. All trials were adminstered x3 to assess for consistency and fatigue. With consecutive thin liquid sips and straw sips patient exhibited a nonproductive cough. These coughs were not noted with nectar thick. BOX TURNER trialed chin tuck/tilt with thins and cough no longer presented. Both pt and stated this was his only time coughing throughout his stay on liquids . BOX TURNER provided education on aspiration, aspiration precautions, and compensatory strategies with pt and family and provided two options explaining safety and rationale between two options. At this time, pt and family would like to pursue regular solids and thins over nectar thick liquids at this time with implementation of compensatory strategies and aspiration precautions as discussed. PHYSICIAN CERTIFICATION: I certify the specified therapy services for Jordan Desai are required, authorized, and reviewed every 30 days.
--- NOTE | 2023-07-22 14:33 | EXP.DC.SUM ---
General Admission date:: 07/21/23 Discharge date: 07/22/23 HPI HPI HPI: Patient is a 62-year-old male without significant past medical history who presents to the hospital due to right-sided facial droop, right-sided weakness. According the patient he has been having weakness for the past 1 week, it has not been improving. He decided to come to the hospital for evaluation. Patient also mentions he feels dizzy intermittently especially while standing up. Patient denied chest pain shortness of breath nausea vomiting diarrhea constipation dysuria fevers and chills. Patient denies difficulty swallowing difficulty walking. Hospital Course Hospital Course Hospital Course: Patient was seen and evaluated at the bedside on the day of discharge. Patient wishes to be discharged. All patient questions were answered and patient was given time to ask questions. Patient was discharged in stable condition. Patient understands that she can return to ER in case of any sudden changes in health. Total time spent on DC - 38 mins Patient is a 62-year-old male without significant past medical history who presents to the hospital due to right-sided facial droop, right-sided weakness. According the patient he has been having weakness for the past 1 week, it has not been improving. He decided to come to the hospital for evaluation. Patient also mentions he feels dizzy intermittently especially while standing up. Patient denied chest pain shortness of breath nausea vomiting diarrhea constipation dysuria fevers and chills. Patient denies difficulty swallowing difficulty walking. Assessment and plan Right-sided facial droop, right-sided weakness, rule out CVA Start aspirin, statin Carotid ultrasound Cardiac echocardiogram - pending, Patient to follow up with Neurologist as OP at [facility] MRI brain without contrast - positive for CVA, discussed with radiologist New onset diabetes mellitus - DC on metformin and Sitagliptin, f/u with PCP as OP Hypertension Hyperlipidemia Resume home lisinopril Continuous statin at discharge Exam Data for Last 24 hours Vital signs and Labs for Last 24 Hours: Temp Pulse Resp BP Pulse Ox O2 Del Method 97.6 F 83 17 128/79 95 Room Air 07/22/23 08:00 07/22/23 08:00 07/22/23 08:00 07/22/23 08:00 07/22/23 08:00 07/22/23 13:00 Laboratory Results - last 24 hr 07/21/23 16:38: Troponin I < 0.01 07/21/23 17:01: POC Glucose 136 H 07/22/23 05:31: WBC 11.2 H, RBC 4.80, Hgb 14.7, Hct 43.6, MCV 90.9, MCH 30.6, MCHC 33.7, RDW 13.2, Plt Count 307, MPV 7.4, Neut % (Auto) 59.0, Lymph % (Auto) 27.8, Brule % (Auto) 7.5, Eos % (Auto) 4.6, Baso % (Auto) 1.1, Neut # (Auto) 6.6, Lymph # (Auto) 3.1, Brule # (Auto) 0.8, Eos # (Auto) 0.5 H, Baso # (Auto) 0.1, Sodium 134 L, Potassium 4.4, Chloride 104, Carbon Dioxide 24, Anion Gap 10.4, BUN 16, Creatinine 0.90, Estimated Creat Clear 96, Estimated GFR 86, Est GFR ( Amer) 104 D, Glucose 152 H D, Calcium 9.0 07/22/23 11:33: POC Glucose 182 H I & O for Last 24 hours: Intake & Output 07/19/23 07/20/23 07/21/23 07/22/23 23:59 23:59 23:59 23:59 Intake Total 240 / 240 840 / 840 Output Total 0 / 0 175 / 175 Balance 240 / 240 665 / 665 Weight 87.09 kg 87.09 kg Constitutional Constitutional: no acute distress *Routine HEENT Exam Head: Present normocephalic Eye: Present EOMI and PERRL ENT: Present mucous membranes moist *Routine Neck Exam Neck: Present supple; Absent lymphadenopathy *Routine Respiratory Exam Respiratory: Present CTA bilaterally *Routine Cardiovascular Exam Cardiovascular: Present RRR *Routine Abdominal Exam Abdominal: Present soft and normoactive bowel sounds; Absent tenderness *Routine Extremities Exam Extremities: Absent cyanosis, clubbing or edema *Routine Skin Exam Skin: Present warm; Absent rash *Routine Neurological Exam Neurological: Present alert, oriented X3 and moving all extremities Comments: he has R sided facial droop Results Data Completed and Pending Labs on day of discharge: Labs from last 24 hours 07/22/23 07/22/23 07/21/23 11:33 05:31 17:01 WBC 11.2 H RBC 4.80 Hgb 14.7 Hct 43.6 MCV 90.9 MCH 30.6 MCHC 33.7 RDW 13.2 Plt Count 307 MPV 7.4 Neut % (Auto) 59.0 Lymph % (Auto) 27.8 Brule % (Auto) 7.5 Eos % (Auto) 4.6 Baso % (Auto) 1.1 Neut # (Auto) 6.6 Lymph # (Auto) 3.1 Brule # (Auto) 0.8 Eos # (Auto) 0.5 H Baso # (Auto) 0.1 Sodium 134 L Potassium 4.4 Chloride 104 Carbon Dioxide 24 Anion Gap 10.4 BUN 16 Creatinine 0.90 Estimated Creat Clear 96 Estimated GFR 86 Est GFR ( Amer) 104 D Glucose 152 H D POC Glucose 182 H 136 H Calcium 9.0 Troponin I 07/21/23 16:38 WBC RBC Hgb Hct MCV MCH MCHC RDW Plt Count MPV Neut % (Auto) Lymph % (Auto) Brule % (Auto) Eos % (Auto) Baso % (Auto) Neut # (Auto) Lymph # (Auto) Brule # (Auto) Eos # (Auto) Baso # (Auto) Sodium Potassium Chloride Carbon Dioxide Anion Gap BUN Creatinine Estimated Creat Clear Estimated GFR Est GFR ( Amer) Glucose POC Glucose Calcium Troponin I < 0.01 DS: Diagnosis Discharge Diagnosis (1) Hyperlipidemia: Status: Acute Code(s): E78.5 - Hyperlipidemia, unspecified (2) Diabetes mellitus: Status: Acute Code(s): E11.9 - Type 2 diabetes mellitus without complications (3) Stroke syndrome: Status: Acute (4) Hypertension: Status: Acute Code(s): I10 - Essential (primary) hypertension Meds Home Medications and Allergies Home Medications Medication Instructions Recorded Confirmed Type lisinopril 10 mg tablet 10 mg PO DAILY #30 tabs 01/08/23 07/21/23 Rx meclizine 25 mg tablet 25 mg PO BID PRN dizziness #20 tabs 01/08/23 07/21/23 Rx aspirin 81 mg tablet,delayed 81 mg PO DAILY 30 days #30 tabs 07/22/23 Rx release atorvastatin 40 mg tablet 40 mg PO HS 30 days #30 tabs 07/22/23 Rx metformin 500 mg tablet 500 mg PO BID 30 days #60 tabs 03/13/24 Rx sitagliptin 50 mg tablet 50 mg PO DAILY 30 days #30 tabs 07/22/23 Rx New Prescriptions to Start Prescriptions: aspirin Justino Craig atorvastatin Justino Craig metformin Justino Craig sitagliptin Justino Craig Allergies Allergy/AdvReac Type Severity Reaction Status Date / Time No Known Allergies Allergy Verified 07/21/23 12:23 Discharge Plan Disposition Patient Disposition: Home, Self-Care Condition: Good Discharge Order Discharge Orders: Discharge Order (Routine); Ordered 07/22/23 Ordered By: Justino Craig Follow up Plan Follow up with: Jose Morales, PROGRAMMING EQUIPMENT OPERATOR [Primary Care Provider] - 1 week Maria L Colon MD [Staff Physician] - 1 week Prescriptions/Medication Reconciliation: New aspirin 81 mg Tablet,Delayed Release (Dr/Ec) 81 mg PO DAILY 30 Days Qty: 30 0RF atorvastatin 40 mg Tablet 40 mg PO HS 30 Days Qty: 30 0RF metformin 500 mg tablet 500 mg PO BID 30 Days Qty: 60 0RF sitagliptin 50 mg tablet 50 mg PO DAILY 30 Days Qty: 30 0RF Continued lisinopril 10 mg tablet 10 mg PO DAILY Qty: 30 0RF meclizine 25 mg tablet 25 mg PO BID PRN (Reason: dizziness) Qty: 20 0RF Problem Reconciliation Problems Reviewed?: Yes Patient Discharge Instructions ACTIVITY: Ambulate as tolerated DIET: diabetic diet Patient Instructions: Stroke (Alternative Therapy) Providers Primary Care Provider: Jose Morales Admit Provider: Justino Craig Attending Provider: Justino Craig
--- NOTE | 2023-07-23 13:55 | CARE MANAGER ---
Contacted patient and related to hospital discharge. They state he is doing well. He has his medications and his follow up appointment with PCP. Also has appt. scheduled with neurology in september, but need it sooner. They are going to discuss this with PCP and see if they can get him in sooner. AMBER Monae
[2023-07-23 18:29] LABS: POC Glucose,Bedside 246 (70-110)
[2023-07-23 18:29] LABS: POC Glucose,Bedside 168 (70-110)
== END 2023-07-22 15:03 | disposition home or self-care (01) ==
LOC: ER 11:31 → ICU 11:58 → 2ND 07-22 11:25 → ICU 07-22 15:49
PROVIDERS: Admitting Provider Internal Medicine; Emergency Provider Emergency Medicine; PCP Nurse Practitioner Family; Visit Provider Internal Medicine
DX: R29.810 Facial weakness (principal); I10 Essential (primary) hypertension; R53.1 Weakness; E78.5 Hyperlipidemia, unspecified
CPT/HCPCS: 36415; 70450; 70496; 70498; 70551; 71045; 80048; 80053; 80061; 81001; 82962; 83036; 84484; 85025; 92523; 93005; 93306; 97162; 97165; 99285; G0378; Q9967

== ENCOUNTER → 2023-10-29 07:58 | Outpatient (CLI) | payer BC, SELFPAY | LOC: SL 11-02 07:58 | PROVIDERS: PCP Nurse Practitioner Family; Visit Provider Specialist | DX: G47.33 Obstructive sleep apnea (adult) (pediatric) (principal); G47.36 Sleep related hypoventilation in conditions classified elsewhere; R53.83 Other fatigue | CPT/HCPCS: G0399 ==

== ENCOUNTER 2023-11-01 14:58 | Emergency (ER) | payer BC, SELFPAY ==
[2023-11-01 16:25] VITALS: BP 136/82; PULSE 68; RESP 18; TEMP 36.7; O2SAT 100; BMI 26.8
[2023-11-01 16:44] LABS: Apearance,Urine Clear (Clear); Bilirubin,Urine Negative (Negative); Blood, Urine Negative (Negative); Color,Urine Yellow (Yellow); Glucose,Urine (UA) 2+ (Negative); Ketones,Urine Negative (Negative); Protein,Urine Negative (Negative); UTC Leukocyte Esterase,Urine Negative (Negative); UTC Nitrate,Urine Negative (Negative); Urobilinogen,Urine 0.2 EU/dl (0.2)
--- NOTE | 2023-11-01 16:50 | ED_ITS ---
Discharge Plan Disposition Patient Disposition: Left Against Medical Advice Condition: Good Prescriptions Prescriptions: No Action lisinopril 10 mg tablet 10 mg PO DAILY Qty: 30 0RF aspirin 81 mg Tablet,Delayed Release (Dr/Ec) 81 mg PO DAILY 30 Days Qty: 30 0RF atorvastatin 40 mg Tablet 40 mg PO HS 30 Days Qty: 30 0RF metformin 500 mg tablet 500 mg PO BID 30 Days Qty: 60 0RF sitagliptin 50 mg tablet 50 mg PO DAILY 30 Days Qty: 30 0RF Referrals Follow up/Referrals: Jose Morales APRN [Primary Care Provider] - See instructions Clinical Impressions Clinical Impression: Abdominal pain, acute, right upper quadrant Instructions Patient Instructions: Acute Abdominal Pain Discharge ED Provider: Keesha ([facility])Raimundo [facility] [place] HPI General Stated complaint: abd pain, upset stomach Mode of Arrival: Ambulatory Source of Information: Patient Limitations: No Limitations Time Seen by Provider: 11/01/23 16:50 Description of Symptoms (Recalled from Triage Doc. by RN): Pain on right side by ribs RUQ. It has been going on for a week and has been getting worse and is constant today. He rates his pain 7/10. HEENT Symptoms (Recalled from RN notes): Yes Resp Symptoms (Recalled from RN notes): No Skin Symptoms (Recalled from RN notes): No MS Symptoms (Recalled from RN notes): No Functional Status (Recalled from RN notes): n/a History of Present Illness Provider Complaint: 62 yr old male presents for ruq pain. It has been going on for a week and has been getting worse and is constant today. He rates his pain 7/10. Related Data Previous Rx's Medication Instructions Recorded lisinopril 10 mg tablet 10 mg PO DAILY #30 tabs 01/08/23 aspirin 81 mg tablet,delayed 81 mg PO DAILY 30 days #30 tabs 07/22/23 release atorvastatin 40 mg tablet 40 mg PO HS 30 days #30 tabs 07/22/23 metformin 500 mg tablet 500 mg PO BID 30 days #60 tabs 07/22/23 sitagliptin 50 mg tablet 50 mg PO DAILY 30 days #30 tabs 07/22/23 Allergies Allergy/AdvReac Type Severity Reaction Status Date / Time No Known Allergies Allergy Verified 11/01/23 16:41 Worker's Comp Is this a Worker's Comp case?: No [facility] Disclaimer: The information contained in this section may have been updated after the patient was seen, as this information can be updated by other users. 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) History of stroke Type 2 diabetes mellitus Surgical History , CEMENT GRINDING MILL OPERATOR) History of hernia surgery History of appendectomy Family History , CEMENT GRINDING MILL OPERATOR) Diabetes Social History , CEMENT GRINDING MILL OPERATOR) Smoking Status: Never smoker alcohol intake: never substance use type: denies use current occupational status: retired Travel in the last 8 weeks: None household members: spouse housing: house marital status: number of children: 3 education level: college ROS Obtained: Yes All systems reviewed & no additional complaints except as documented Constitutional Constitutional: Reports system reviewed and no additional complaints, except as documented Eyes Eyes: Reports system reviewed and no additional complaints, except as documented ENT Ears, Nose, Mouth, and Throat: Reports system reviewed and no additional complaints, except as documented Cardiovascular Cardiovascular: Reports system reviewed and no additional complaints, except as documented Respiratory Respiratory: Reports system reviewed and no additional complaints, except as documented Gastrointestinal Gastrointestingal: Reports system reviewed and no additional complaints, except as documented and as per HPI Musculoskeletal Musculoskeletal: Reports system reviewed and no additional complaints, except as documented Integumentary/Breasts Skin/Breast: Reports system reviewed and no additional complaints, except as documented Neurologic Neurologic: Reports system reviewed and no additional complaints, except as documented Endocrine Endocrine: Reports system reviewed and no additional complaints, except as documented Hematologic/Lymphatic Henatologic/Lymphatic: Reports system reviewed and no additional complaints, except as documented Allergic/Immunologic Allergic/Immunologic: Reports system reviewed and no additional complaints, except as documented Physical Exam General General appearance: alert and in no apparent distress Head Head exam: atraumatic Eye Eye exam: Present normal appearance ENT ENT exam: Present normal exam Neck Neck exam: Present normal inspection Respiratory Respiratory exam: Present normal lung sounds bilaterally Cardiovascular Cardiovascular exam: Present regular rate and normal rhythm Abdominal Exam Abdominal exam: Present soft, tenderness and normal bowel sounds Abdominal tenderness: Present RUQ Neurological Exam Neurological exam: Present alert and oriented X3 Skin Skin exam: Present warm and intact Lymphatic Lymphatic Findings: no adenopathy Medical Decision Making Medical Records Medical records reviewed: Yes I reviewed the patient's medical records. Tong Inquiry Pt receiving controlled substance: No Tong was queried for this patient: No Vital Signs: 11/01/23 16:25 Temperature 98.0 F Temperature Source Oral Pulse Rate [Right Radial] 68 Respiratory Rate 18 Blood Pressure [Right Arm] 136/82 Blood Pressure Mean [Right Arm] 100 Blood Pressure Source [Right Arm] Automatic Cuff Blood Pressure Position [Right Arm] Sitting 02 Sat by Pulse Oximetry 100 Oxygen Delivery Method Room Air Lab Data Lab results reviewed: Yes I reviewed the patient's lab results. Lab Results 11/01/23 16:43: Urine Color Yellow, Urine Appearance Clear, Urine pH 5.0, Ur Specific Brule 1.020, Urine Protein Negative, Urine Glucose (UA) 2+, Urine Ketones Negative, Urine Blood Negative, Urine Nitrate Negative, Urine Bilirubin Negative, Urine Urobilinogen 0.2, Ur Leukocyte Esterase Negative Physician Consults Physician Consulted: Dr Vega Time: 16:55 Reason -: Pt condition Comment/Response: pt having ruq pain and tenderness report given.ed notified [facility] his family could not come with him he became upset, offered to start work up in [facility] until bed became available and they declined to stay or wait for ed bed to open. pt signed ama form and left. discussed possible risk of not getting work up declined
--- NOTE | 2023-11-01 17:00 | PC.NURSE ---
Pt was suggested to go to ED for further evaluation. He agreed I called ED to get a Room assignment and was told he could go to [facility] 12, but no visitors. Once this information was relayed to the patient he refused to go. I explained that once they get a bigger room his was able to go back he again refused. We offered to let him stay in [facility] 1 and board until they get a bigger room and his is able to go. He stated that he doesn't want to have to wait here and wait in the ED. He stated that he was going to go to the doctor tomorrow. He signed an AMA form and stated that he will see doctor tomorrow.
[2023-11-01 17:06] VITALS: BP 136/82; PULSE 68; RESP 18; TEMP 36.7; O2SAT 100
== END 2023-11-01 17:06 | disposition left against medical advice (07) ==
PROVIDERS: Emergency Provider Nurse Practitioner Family; PCP Nurse Practitioner Family
DX: R10.11 Right upper quadrant pain (principal)
CPT/HCPCS: 81003; 99203; 99212; G0463

== ENCOUNTER 2023-11-02 12:05 | Emergency (ER) | payer BC, SELFPAY ==
[2023-11-02 12:07] VITALS: BP 144/81; PULSE 86; RESP 18; TEMP 36.8; O2SAT 98; BMI 26.7
[2023-11-02] MEDS: ACETAMINOPHEN 500MG TAB 1000 MG PO (13:02)
[2023-11-02] MEDS: KETOROLAC 30MG/ML VIAL 15 MG IV (13:02)
[2023-11-02 13:07] LABS: Basophils # 0.1 K/mm3 (0-0.2); Basophils % 0.8 % (0.1-2.0); Eosinophils # 0.2 K/mm3 (0.0-0.4); Eosinophils % 1.6 % (0.1-12.0); Hemoglobin 14.2 g/dL (14.1-18.0); Lymphocytes # 1.9 K/mm3 (0.7-4.5); Lymphocytes % 15.7 % (10-50); Mean Corpuscular Hemoglobin 30.1 pg (27.0-31.2); Mean Corpuscular Volume 91.4 fl (80-94); Mean Platelet Volume 7.5 fl (7.4-10.4); Monocytes # 0.7 K/mm3 (0.1-1.0); Monocytes % 5.7 % (1.7-9.3); Neutrophils # 9.3 K/mm3 (1.8-7.8); Neutrophils % 76.2 % (37.0-80.0); Platelet Count 331 K/mm3 (142-424); Red Cell Distribution Width 13.5 % (11.5-17.5); White Blood Count 12.2 K/mm3 (4.8-10.8)
[2023-11-02 13:09] LABS: Microscopic, Urine URINE MICROSCOPIC (MICROSCOPIC)
[2023-11-02 13:10] LABS: Appearance,Urine SL CLOUDY (Clear); Bilirubin,Urine Negative (Negative); Blood, Urine Negative (Negative); Color,Urine YELLOW (Yellow); Glucose,Urine (UA) 3+ (Negative); Ketones,Urine Negative (Negative); Leukocyte Esterase,Urine Negative (Negative); Nitrate,Urine Negative (Negative); Protein,Urine Negative (Negative); Specific Gravity, Urine 1.025 (1.005-1.030); Urobilinogen,Urine 0.2 EU/dl (0.2)
[2023-11-02 13:13] LABS: Chloride 105 mmol/L (98-107); Potassium 4.4 mmoL/L (3.5-5.1); Sodium 137 mmol/L (136-145)
[2023-11-02 13:15] LABS: Alanine Aminotransferase 30 U/L (12-78); Anion Gap 9.4 mEq/L (5-15); Aspartate Amino Transferase 28 U/L (17-59); Blood Urea Nitrogen 20 mg/dl (9-20); Carbon Dioxide 27 mmol/L (22.0-30.0); Creatinine Clearance Estimated 87 mL/min (50-200); Estimated Glomerular Filt Rate 68 ml/min (>60); GFR (African American) 82 ML/MIN (>60)
[2023-11-02 13:16] LABS: Albumin Level 4.2 g/dl (3.5-5.0); Albumin/Globulin Ratio 1.4 (1.1-1.8); Alkaline Phosphatase 84 U/L (38-126); Bilirubin,Total 0.3 mg/dl (0.2-1.3); Calcium 9.4 mg/dl (8.4-10.2); Glucose 222 mg/dl (74-100); Lipase 105 U/L (23-300); Total Protein,Serum 7.2 g/dl (6.3-8.2)
[2023-11-02] MEDS: DEXAMETHASONE 4MG/ML 1ML VIAL 10 MG IV (13:48)
--- NOTE | 2023-11-02 13:58 | ED_ITS ---
Discharge Plan Disposition Patient Disposition: Home, Self-Care Prescriptions Prescriptions: New prednisone 20 mg tablet 40 mg PO DAILY 5 Days Qty: 10 0RF valacyclovir 1 gram tablet 1,000 mg PO Q8H 10 Days Qty: 30 0RF lidocaine 5 % adhesive patch,medicated 1 patch topical DAILY Qty: 15 0RF Rx Instructions: leave on most painful area for up to 12 hrs No Action lisinopril 10 mg tablet 10 mg PO DAILY Qty: 30 0RF aspirin 81 mg Tablet,Delayed Release (Dr/Ec) 81 mg PO DAILY 30 Days Qty: 30 0RF atorvastatin 40 mg Tablet 40 mg PO HS 30 Days Qty: 30 0RF metformin 500 mg tablet 500 mg PO BID 30 Days Qty: 60 0RF sitagliptin 50 mg tablet 50 mg PO DAILY 30 Days Qty: 30 0RF Referrals Follow up/Referrals: Taylor Prasad APRN [Primary Care Provider] - See instructions Activity Restrictions/Add. Instructions Additional Instructions/Restrictions: Call your family doctor to establish care for this visit to the emergency department and schedule follow-up within 48 hours to ensure improvement. If you have any worsening of your condition or any other concerning signs or symptoms, return to the emergency department or your primary care doctor for further evaluation. If you develop a rash, valacyclovir has been sent to the pharmacy of choice in [place]. Take prednisone each day for radiculopathy (nerve pain) after heavy lifting. Clinical Impressions Clinical Impression: Acute chest wall pain Discharge ED Provider: Corbin Medel General Adult HPI General Chief complaint: PAIN Stated complaint: abd pain, sent by Dr. Prasad Time Seen by Provider: 11/02/23 12:17 Mode of Arrival: Ambulatory Source of Information: Patient Limitations: No Limitations Description of Symptoms (Recalled from ER Triage Doc. by RN): c/o right side pain that started a week ago, pt states he had lifted a garage door and thought that was the cause. PT states he was seen in [facility] yesterday and was to be sent to the er but he didnt want to wait, fu with his pcp today who thought he might have a infection and wanted him to come be further evaluated in the ER. History of Present Illness HPI narrative: Please note that above description of symptoms, in this electronic medical record under categorization of recalled from ER triage doctor by RN are reflective of an initial nursing assessment, however, is not reflective of my full history and physical exam that was personally taken and clarified. Consequentially, this preceding description of symptoms, which may include the patient's categorized chief complaint in the EMR, do not reflect my personal clinical impression, and the ultimate description of history of present illness and patient stated complaints should be deferred to this section of the note. Unless stated otherwise or congruent with this section of the note, additional signs, symptoms, or incongruence should be interpreted as inaccurate with my clinical impression. Related Data Previous Rx's Medication Instructions Recorded lisinopril 10 mg tablet 10 mg PO DAILY #30 tabs 01/08/23 aspirin 81 mg tablet,delayed 81 mg PO DAILY 30 days #30 tabs 07/22/23 release atorvastatin 40 mg tablet 40 mg PO HS 30 days #30 tabs 07/22/23 metformin 500 mg tablet 500 mg PO BID 30 days #60 tabs 07/22/23 sitagliptin 50 mg tablet 50 mg PO DAILY 30 days #30 tabs 07/22/23 lidocaine 5 % topical patch 1 patch topical DAILY #15 ea 11/02/23 prednisone 20 mg tablet 40 mg (2 x 20 mg) PO DAILY 5 days 11/02/23 #10 tabs valacyclovir 1 gram tablet 1,000 mg PO Q8H 10 days #30 tabs 11/02/23 Allergies Allergy/AdvReac Type Severity Reaction Status Date / Time No Known Allergies Allergy Verified 11/01/23 16:41 [facility] Disclaimer: The information contained in this section may have been updated after the patient was seen, as this information can be updated by other users. 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) Smoking Status: Never smoker alcohol intake: never substance use type: denies use current occupational status: retired Travel in the last 8 weeks: None household members: spouse housing: house marital status: number of children: 3 education level: college ROS Obtained: Yes All systems reviewed & no additional complaints except as documented Physical Exam General General appearance: alert and in no apparent distress Head Head exam: atraumatic and normocephalic Eye Eye exam: Present normal appearance, PERRL and EOMI ENT ENT exam: Present mucous membranes moist Neck Neck exam: Present normal inspection, full ROM and trachea midline Chest Chest inspection: Present tenderness (Extreme tenderness to superficial touch overlying right lower ribs anteriorly) Respiratory Respiratory exam: Present normal lung sounds bilaterally; Absent respiratory distress, wheezes, stridor, accessory muscle use or prolonged expiratory phase Cardiovascular Cardiovascular exam: Present regular rate and normal rhythm Abdominal Exam Abdominal exam: Present soft; Absent distention, tenderness, guarding, rebound or rigidity Extremities Exam Extremities exam: Absent edema Neurological Exam Neurological exam: Present alert, oriented X3, CN II-XII intact and normal gait; Absent motor sensory deficit Skin Skin exam: Present warm and dry; Absent diaphoresis or erythema Medical Decision Making Medical Records Medical records reviewed: Yes I reviewed the patient's medical records. Tong Inquiry Pt receiving controlled substance: No Tong was queried for this patient: No Vital Signs: 11/02/23 12:07 Temperature 98.2 F Temperature Source Oral Pulse Rate [Left Radial] 86 Respiratory Rate 18 Blood Pressure [Right Arm] 144/81 H Blood Pressure Mean [Right Arm] 102 Blood Pressure Source [Right Arm] Automatic Cuff Blood Pressure Position [Right Arm] Sitting 02 Sat by Pulse Oximetry 98 Oxygen Delivery Method Room Air Lab Data Lab Results 11/02/23 13:00: WBC 12.2 H, RBC 4.70, Hgb 14.2, Hct 43.0, MCV 91.4, MCH 30.1, MCHC 33.0, RDW 13.5, Plt Count 331, MPV 7.5, Neut % (Auto) 76.2, Lymph % (Auto) 15.7, [place] % (Auto) 5.7, Eos % (Auto) 1.6, Baso % (Auto) 0.8, Neut # (Auto) 9.3 H, Lymph # (Auto) 1.9, [place] # (Auto) 0.7, Eos # (Auto) 0.2, Baso # (Auto) 0.1, Sodium 137, Potassium 4.4, Chloride 105, Carbon Dioxide 27, Anion Gap 9.4, BUN 20, Creatinine 1.10, Estimated Creat Clear 87, Estimated GFR 68, Est GFR ( Amer) 82, Glucose 222 H, Calcium 9.4, Total Bilirubin 0.3, AST 28, ALT 30, Alkaline Phosphatase 84, Total Protein 7.2, Albumin 4.2, Globulin 3.0, Albumin/Globulin Ratio 1.4, Lipase 105 11/02/23 13:04: Urine Color Yellow, Urine Appearance Sl cloudy, Urine pH 6.0, Ur Specific [place] 1.025, Urine Protein Negative, Urine Glucose (UA) 3+, Urine Ketones Negative, Urine Blood Negative, Urine Nitrate Negative, Urine Bilirubin Negative, Urine Urobilinogen 0.2, Ur Leukocyte Esterase Negative 11/02/23 13:00 11/02/23 13:00 Orders (Tests/Meds): ED MEDICATIONS Discontinued Medications Generic Name Dose Route Start Last Admin Trade Name Freq PRN Reason Stop Dose Admin Acetaminophen 1,000 mg 11/02/23 12:47 11/02/23 13:02 Acetaminophen 500mg Tab PO 11/02/23 12:48 1,000 mg ONCE ONE Administration Dexamethasone Sodium Phosphate 10 mg 11/02/23 13:26 11/02/23 13:48 Dexamethasone 4mg/Ml 1ml Vial IV 11/02/23 13:27 10 mg ONCE ONE Administration Ketorolac Tromethamine 15 mg 11/02/23 12:47 11/02/23 13:02 Ketorolac 30mg/Ml Vial IV 11/02/23 12:48 15 mg ONCE ONE Administration Lidocaine 1 each 11/02/23 13:59 Lidocaine 5% Transdermal Patch TP 11/02/23 14:00 ONCE ONE ORDERS Category Date Time Status POCUS Point of Care (ER Only) Stat Exams 11/02/23 12:47 Completed CBC w/Auto Diff [Complete Blood Count Auto Diff] Stat Lab 11/02/23 13:00 Completed CMP [Comprehensive Metabolic Panel] Stat Lab 11/02/23 13:00 Completed Lipase Stat Lab 11/02/23 13:00 Completed UA [Urinalysis and Microscopic] Stat Lab 11/02/23 13:04 Results Medical Decision Narrative: 62-year-old male history of hypertension, recent stroke presenting with chest wall pain. This been going on for a few days. Saw his family doctor, recommended coming to the emergency department for labs and possible CT scan. Patient states that it is over his right ribs on his lateral chest wall, no rash. No fevers or chills, nausea, vomiting, diarrhea, constipation, abdominal pain. States that it intermittently radiates around his chest wall and the outside toward his back. He does state that a couple days ago, he was opening a heavy garage door and thinks he may have pulled his back at that time. History obtained with patient and . On arrival, patient hemodynamically stable, alert, oriented x4, appropriate, GCS 15, moving all extremities spontaneously, pupils equal and reactive to light. Full physical exam performed and significant for severe pain superficial touch right anterior/lateral chest wall pain. No abdominal tenderness,guarding, or distention. Neurologically intact, cardiopulmonary exam within normal limits. Differential includes radiculopathy, neuropathy, cholecystitis, pancreatitis, PUD, gastritis, aortic pathology, among others. Patient was given Toradol, Decadron, lidocaine patch, acetaminophen for symptomatic management and correction of underlying abnormalities. Workup independently interpreted and significant for nonactionable CBC or chemistry. Lipase negative. Bedside [id number] ultrasound without acute cholecystitis. He does have 1 small gallstone, but is not in the neck and there is no secondary findings of cholecystitis. No abdominal tenderness on ultrasound exam. On reevaluation, patient states that pain is basically what it was at the baseline. Lidocaine patch was applied. Was explained that Decadron will kick in after an hour or 2 and should start to help with his pain. Prednisone also into the pharmacy, is recommended that he follow sugars throughout the day. Lidocaine patches also sent to the pharmacy. Because patient at baseline without signs or symptoms of clinical decompensation, deemed appropriate for discharge. Results were relayed to patient who voiced understanding and were agreeable to outpatient management and follow up. I discussed my clinical impression with patient and answered all questions. At this time, the evidence for any other entities in the differential is insufficient to warrant any further testing or ED observation. This was explained as well. Advisory was given that persistent or worsening symptoms require further evaluation. I confirmed the understanding of this discussion. Bank Consultant disclaimer Much of this encounter note is an electronic rotor winder spoken language to printed text. Electronic rotor winder of the spoken language may permit errors. Although I have reviewed the note, some errors may still exist. Procedures Limited Ultrasound Indication:: Limited RUQ ultrasound Indication: Right lower chest wall pain Identified structures: -Gallbladder -Gallbladder wall -Common bile duct -Liver Findings: Sonographic Miller sign: Absent Gallstones: Absent Sludge: Absent Pericholecystic fluid: Absent Maximal GB wall thickness (mm) (normal is </= 3mm): Normal Common bile duct width (mm) (normal is </= 6mm): Normal Gallbladder width (cm) (normal is < 4cm): Normal Gallbladder length (cm) (normal is < 10cm): Normal Impression: Normal right upper quadrant ultrasound Normal right kidney Images were saved to permanent archive The study was technically adequate CPT 41253-05 This study was performed by me, and I personally interpreted all images/videos. Based on my clinical judgement, these images were adequate and did not necessitate further imaging. Critical Care Critical Care Time Critical Care Time: No
[2023-11-02] MEDS: LIDOCAINE 5% TRANSDERMAL PATCH 1 EACH TP (14:11)
[2023-11-02 14:15] VITALS: BP 144/85; PULSE 69; RESP 20; TEMP 36.7; O2SAT 99
[2023-11-02 15:13] LABS: Bacteria,Urine Trace /lpf; Squamous Epithelial Cell,Urine Occasional #/hpf (0-5); WBC,Urine Occasional #/hpf (0-3)
== END 2023-11-02 14:17 | disposition home or self-care (01) ==
PROVIDERS: Emergency Provider Emergency Medicine; PCP Nurse Practitioner Family
DX: R07.89 Other chest pain (principal); E11.9 Type 2 diabetes mellitus without complications; Z79.84 Long term (current) use of oral hypoglycemic drugs
CPT/HCPCS: 80053; 81001; 83690; 85025; 96374; 96375; 99284; J1100; J1885

== ENCOUNTER 2023-11-25 14:51 | Outpatient (POV) | payer BC, SELFPAY ==
[2023-11-25 15:30] VITALS: BP 122/82; PULSE 105; RESP 18; O2SAT 98; BMI 27.0
--- NOTE | 2023-11-25 16:13 | EXP.PAIN.OV ---
HPI Data of Consult Patient: new to practice Consult date: 11/25/23 Requesting Physician: Taylor Orlando APRN Primary Care Provider: Taylor Prasad APRN Consult Narrative Reason for consult: Acute shingles outbreak right upper abdomen/thoracic region History of present illness: Mr. Desai is a 62 year old male who presents today as a new patient. He is a referral from [facility]. Today the patient rates his pain a 9 out of 10. Patient states his pain is all above his right upper abdomen that does radiate towards his mid back. Patient denies any symptoms along the left side and denies any radiating symptoms into his legs. Patient does state this is been going on the last 3 weeks and states that they are treating him for shingles however he has no rash. Patient states the pain is severe with a burning stinging sensation that when it flares up he cannot do any activities of daily living. Patient has had 1 round of desciclovir and has been tried on Lyrica with no changes. Patient was given oral steroids however due to being diabetic his sugar shot up to 469. Patient is interested in any help we may be able to provide. His Tong has been reviewed and is appropriate. CC: Taylor Orlando APRN [facility] Disclaimer: The information contained in this section may have been updated after the patient was seen, as this information can be updated by other users. 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) History of hernia surgery History of appendectomy Family History , POWER REACTOR SUPERVISOR) Diabetes Social History (Updated 11/25/23 @ 15:31 by Mindi Becker RN) Smoking Status: Never smoker alcohol intake: never substance use type: denies use current occupational status: other Travel in the last 8 weeks: None household members: spouse housing: house marital status: number of children: 3 education level: college Review of Systems Review of Systems Review of systems:: pertinent systems reviewed and negative unless documented below Review of systems (narrative): Review of Systems: General: No recent weight changes, no fever, no sleep disturbances Respiratory: No cough, no shortness of air, no recurring pulmonary infections Cardiovascular/peripheral vascular: No chest pain, no palpitations, no edema, no shortness of breath Gastrointestinal: No new onset incontinence, normal bowel movements reported Genitourinary: No new onset incontinence Musculoskeletal: Right upper abdomen pain, mid back pain Psychiatric: [Normal mood/affect] Neurological: [Denies weakness in extremities], [denies balance issues] Meds Home Medications and Allergies Home Medications Medication Instructions Recorded Confirmed Type lisinopril 10 mg tablet 10 mg PO DAILY #30 tabs 01/08/23 11/25/23 Rx aspirin 81 mg tablet,delayed 81 mg PO DAILY 30 days #30 tabs 07/22/23 11/25/23 Rx release atorvastatin 40 mg tablet 40 mg PO HS 30 days #30 tabs 07/22/23 11/25/23 Rx metformin 500 mg tablet 500 mg PO BID 30 days #60 tabs 07/22/23 11/25/23 Rx sitagliptin 50 mg tablet 50 mg PO DAILY 30 days #30 tabs 07/22/23 11/25/23 Rx lidocaine 5 % topical patch 1 patch topical DAILY #15 ea 11/02/23 11/25/23 Rx prednisone 20 mg tablet 40 mg (2 x 20 mg) PO DAILY 5 days 11/02/23 11/25/23 Rx #10 tabs valacyclovir 1 gram tablet 1,000 mg PO Q8H 10 days #30 tabs 11/02/23 11/25/23 Rx New Prescriptions to Start Prescriptions: Allergies Allergy/AdvReac Type Severity Reaction Status Date / Time No Known Allergies Allergy Verified 11/01/23 16:41 Objective Vital signs: Pulse Resp BP Pulse Ox O2 Del Method 105 H 18 122/82 98 Room Air 11/25/23 15:30 11/25/23 15:30 11/25/23 15:30 11/25/23 15:30 11/25/23 15:30 Narrative: Physical Exam: General: Alert and oriented x3, no acute distress, pleasant and cooperative Lungs: Respirations even and unlabored, symmetrical chest expansion Eyes: PERRL Musculoskeletal: Flexion and extension of thoracic [spine] somewhat guarded secondary to pain, point tenderness with palpation all along his right upper abdomen going towards his thoracic spine Neurological: Speech clear, no gross sensory deficit Assessment and Plan *Assessment and plan (1) Acute chest wall pain: Status: Acute Category: Medical Code(s): R07.89 - Other chest pain (2) Abdominal pain, acute, right upper quadrant: Status: Acute Category: Medical Code(s): R10.11 - Right upper quadrant pain (3) Acute pain associated with herpes zoster: Status: Acute Category: Medical Code(s): B02.9 - Zoster without complications Plan Patient is experiencing significant pain related to possible acute shingles outbreak. Patient does have limited range of motion of his thoracic cavity with point tenderness noted all along his right upper quadrant going towards his thoracic spine approximately T12 level. I have discussed with patient that he may benefit from trigger point injections along this area. Risk and benefits were discussed with patient and he would like to proceed forward with this plan of care. We will also order the patient a compounded cream. Patient will be scheduled for trigger point injections of his right upper abdomen quadrant and right thoracic paraspinous area. These injections will be done without fluoroscopy or ultrasound. Patient has been instructed to contact the clinic with any concerns before the next appointment. Dr. Rodriguez has reviewed this note and agrees with this plan of care. This note was dictated using voice recognition software and make contain errors or omissions.
== END 2023-11-25 23:59 | disposition home or self-care (01) ==
PROVIDERS: PCP Nurse Practitioner Family; Visit Provider Nurse Practitioner Family
DX: R07.89 Other chest pain (principal); R10.11 Right upper quadrant pain; B02.9 Zoster without complications; Z79.899 Other long term (current) drug therapy; Z86.73 Personal history of transient ischemic attack (TIA), and cerebral infarction without residual deficits
CPT/HCPCS: 99202; G0463

== ENCOUNTER 2023-11-26 11:29 | Day surgery (SDC) | payer BC, SELFPAY ==
[2023-11-26 11:36] VITALS: BP 124/70; PULSE 90; RESP 18; O2SAT 98; BMI 26.8
[2023-11-26 12:05] VITALS: BP 124/70; PULSE 90; RESP 18; O2SAT 98
--- NOTE | 2023-11-26 12:05 | EXP.PAIN.PRO ---
Procedure Date: 11/26/23 Time: 12:05 Anesthesiologist:: Taylor Orlando APRN Complications:: None Pre-procedure Diagnosis:: Acute herpes zoster, right upper abdomen/right thoracic paraspinous muscle pain, myofascial pain Post-procedure Diagnosis:: Same Indications for Procedure:: Patient is a pleasant 62-year-old male who presents today for trigger point injections of his right upper abdomen/right thoracic paraspinous muscles related to an suspected herpes zoster outbreak. Patient does present today still with no rash present in this area however has extreme point tenderness with palpation. Patient states that he has not yet started the muscle relaxers that he got them this morning and that the pharmacy for the compounded cream has called and they are mailing the cream to him. Patient does rate his pain today a 8 out of 10. He denies any new changes. He does feel like it has moved a little bit further down but still in his right upper quadrant area. Patient was called and baclofen 10 mg 3 times a day with a 14-day supply and was ordered the compounded cream. His Tong has been reviewed and is appropriate. Physical Exam: General: Alert and oriented x3, no acute distress, pleasant and cooperative Lungs: Respirations even and unlabored, symmetrical chest expansion Eyes: PERRL Musculoskeletal: Flexion and extension of thoracic [spine] somewhat guarded secondary to pain, [antalgic gait noted] point tenderness along right upper quadrant and right thoracic paraspinous muscles Neurological: Speech clear, no gross sensory deficit Procedure Details:: Patient was taken to the procedure area where he had pulse oximeter and blood pressure cuff applied. Patient had the area over his right upper quadrant and right thoracic paraspinous muscles cleaned with isopropyl alcohol. Patient then was palpated and using a 25-gauge sterile needle he was then incrementally injected with 6 mL of lidocaine 1% and Depo-Medrol 40 mg/mL of solution. Ple[place] were all removed and discarded appropriately. Patient did state that he had 100% improvement at this time and was not having the sensitivity to touch with palpation after this procedure. Plan and Disposition:: Patient tolerated his procedure well with trigger point injections and was discharged neurologically intact. Patient will return to clinic in 2 weeks for reevaluation of symptoms and plan of care. Patient has been instructed to contact the clinic with any concerns before the next appointment. Dr. Rodriguez has reviewed this note and agrees with this plan of care. This note was dictated using voice recognition software and make contain errors or omissions.
[2023-11-26 12:19] VITALS: BP 114/78; PULSE 89; RESP 18; O2SAT 100
== END 2023-11-26 12:10 | disposition home or self-care (01) ==
PROVIDERS: PCP Nurse Practitioner Family; Visit Provider Nurse Practitioner Family
DX: M79.18 Myalgia, other site (principal)
CPT/HCPCS: 20553

== ENCOUNTER 2023-12-14 13:50 | Outpatient (POV) | payer BC, SELFPAY ==
[2023-12-14 13:57] VITALS: BP 119/75; PULSE 85; RESP 16; O2SAT 100; BMI 60.2
--- NOTE | 2023-12-14 14:04 | EXP.PAIN.SOA ---
[facility] Disclaimer: The information contained in this section may have been updated after the patient was seen, as this information can be updated by other users. 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) History of hernia surgery History of appendectomy Family History , DEEP TISSUE MASSAGE THERAPIST) Diabetes Social History (Updated 11/26/23 @ 12:22 by Mindi Becker RN) Smoking Status: Never smoker alcohol intake: never substance use type: denies use current occupational status: unemployed Travel in the last 8 weeks: None household members: spouse housing: house marital status: number of children: 3 education level: college PM Subjective & Objective Subjective Subjective:: Patient is a pleasant 62-year-old male who presents today for follow-up of trigger point injections of his right thoracic paraspinous and right upper abdomen muscles on 11/27/2023. Today he rates his pain a 2 out of 10. Patient states that he has had 100% improvement following these injections. He said that with the combination of baclofen and compounded cream made all the difference. He states that he has had such improvement that he is really not had to use the compounded cream or baclofen as often. Patient states that he is much more manageable and has improved function. His Tong has been reviewed and is appropriate. Review of Systems: General: No recent weight changes, no fever, no sleep disturbances Respiratory: No cough, no shortness of air, no recurring pulmonary infections Cardiovascular/peripheral vascular: No chest pain, no palpitations, no edema, no shortness of breath Gastrointestinal: No new onset incontinence, normal bowel movements reported Genitourinary: No new onset incontinence Musculoskeletal: Right upper abdomen pain Psychiatric: [Normal mood/affect] Neurological: [Denies weakness in extremities], [denies balance issues] Pain at rest (0-10 scale): 2 Objective Objective:: Physical Exam: General: Alert and oriented x3, no acute distress, pleasant and cooperative Lungs: Respirations even and unlabored, symmetrical chest expansion Eyes: PERRL Musculoskeletal: Flexion and extension of thoracic spine within normal limits Neurological: Speech clear, no gross sensory deficit Has patient had previous pain injection?: Yes Percent improvement in pain since last injection: 100% Conservative treatment options previously tried: Prescription medications Length of treatment: Longer than 3 weeks Meds Home Medications and Allergies Home Medications ?Medication ?Instructions ?Recorded ?Confirmed ?Type lisinopril 10 mg tablet 10 mg PO DAILY #30 tabs 01/08/23 11/25/23 Rx aspirin 81 mg tablet,delayed 81 mg PO DAILY 30 days #30 tabs 07/22/23 11/25/23 Rx release atorvastatin 40 mg tablet 40 mg PO HS 30 days #30 tabs 07/22/23 11/25/23 Rx metformin 500 mg tablet 500 mg PO BID 30 days #60 tabs 07/22/23 11/25/23 Rx sitagliptin 50 mg tablet 50 mg PO DAILY 30 days #30 tabs 07/22/23 11/25/23 Rx lidocaine 5 % topical patch 1 patch topical DAILY #15 ea 11/02/23 11/25/23 Rx prednisone 20 mg tablet 40 mg (2 x 20 mg) PO DAILY 5 days 11/02/23 11/25/23 Rx #10 tabs valacyclovir 1 gram tablet 1,000 mg PO Q8H 10 days #30 tabs 11/02/23 11/25/23 Rx baclofen 10 mg tablet 10 mg PO TID #90 tabs 12/09/23 Rx New Prescriptions to Start Prescriptions: Allergies Allergy/AdvReac Type Severity Reaction Status Date / Time No Known Allergies Allergy Verified 11/01/23 16:41 Assessment and Plan *Assessment and plan (1) Acute pain associated with herpes zoster: Status: Acute Category: Medical Code(s): B02.9 - Zoster without complications (2) Myofascial pain: Status: Acute Category: Medical Code(s): M79.18 - Myalgia, other site Plan Patient has had 100% relief following his trigger point injections along with his compounded cream and baclofen. I have discussed with the patient that I will make sure he has refills on his baclofen and follow-up with him in 1 month for reevaluation of symptoms and plan of care. Patient is agreeable. Patient has been instructed to contact the clinic with any concerns before the next appointment. Dr. Rodriguez has reviewed this note and agrees with this plan of care. This note was dictated using voice recognition software and make contain errors or omissions. All injections are used with Lidocaine or Bupivacaine and Depo Medrol.
== END 2023-12-14 23:59 | disposition home or self-care (01) ==
LOC: SC.PAIN 13:50
PROVIDERS: PCP Nurse Practitioner Family; Visit Provider Nurse Practitioner Family
DX: B02.9 Zoster without complications (principal); M79.18 Myalgia, other site; E11.9 Type 2 diabetes mellitus without complications; Z79.899 Other long term (current) drug therapy; Z86.73 Personal history of transient ischemic attack (TIA), and cerebral infarction without residual deficits
CPT/HCPCS: 99212; G0463